=== PATIENT | male | born 1955 | race Hispanic/Latino ===

== ENCOUNTER 2020-12-09 15:40 | Inpatient (IN) | payer MEDICARE ==
[~2020-12-09] VITALS: Ht 167.6 cm; Wt 69.4 kg
[2020-12-09 16:45] LABS: BASOPHILS # (AUTO) 0.1 (0.0-0.1); BASOPHILS % 0.4 % (0.0-1.0); EOSINOPHILS # (AUTO) 0.1 (0.0-0.4); EOSINOPHILS % 1.1 % (0.0-6.0); HEMOGLOBIN 12.2 g/dL (14.0-18.0); LYMPHOCYTES # (AUTO) 2.7 (1.0-3.2); LYMPHOCYTES % 23.6 % (18.0-39.1); MEAN CORPUSCULAR HEMOGLOBIN 26.6 pg (28-32); MEAN CORPUSCULAR HGB CONC 31.3 g/dL (31-35); MONOCYTES # (AUTO) 0.8 (0.2-0.8); MONOCYTES % 7.1 % (4.4-11.3); NEUTROPHILS # (AUTO) 7.7 (2.1-6.9); NEUTROPHILS % 67.4 % (38.7-80.0); PLATELET COUNT 417 x10e3/uL (140-360); RED BLOOD COUNT 4.59 x10e6/uL (4.3-5.7)
[2020-12-09 17:16] LABS: ALANINE AMINOTRANSFERASE 11 IU/L (0-55); ALBUMIN 3.6 g/dL (3.5-5.0); ALBUMIN/GLOBULIN RATIO 0.8 (0.8-2.0); ALKALINE PHOSPHATASE 60 IU/L (40-150); ANION GAP 17.8 mmol/L (8-16); BLOOD UREA NITROGEN 17 mg/dL (7-26); BUN/CREATININE RATIO 17 (6-25); CALCIUM 9.2 mg/dL (8.4-10.2); CARBON DIOXIDE 22 mmol/L (22-29); CHLORIDE 103 mmol/L (98-107); CREATININE, SERUM 1.02 mg/dL (0.72-1.25); EST GLOMERULAR FILTRATION RATE > 60 ML/MIN (60-); GLUCOSE 208 mg/dL (74-118); POTASSIUM 4.8 mmol/L (3.5-5.1); SODIUM 138 mmol/L (136-145)
[2020-12-09] MEDS ORDERED: DEXTROSE 50% SYRINGE 50 ML IV PRN (19:45)
[2020-12-09] MEDS ORDERED: SODIUM CHLORIDE FLUSH 10 ML SYR INJ PRN (19:45)
[2020-12-09] MEDS ORDERED: ACETAMINOPHEN 325 MG TAB PO PRN (19:45)
[2020-12-09] MEDS: PIPER-TAZ 3.375 GM 50 ML IV SCH (20:26)
[2020-12-09] MEDS: INSULIN REGULAR, HUMAN 100 UNIT/1 ML 3ML VIAL SQ SCH (21:00)
[2020-12-09 21:41] VITALS: BP 163/82
[2020-12-09] MEDS ORDERED: SODIUM CHLORIDE 0.9% 250ML 250 ML ONE (22:13)
[2020-12-09] MEDS: VANCOMYCIN 1GM/NS 250 ML 250 ML IV SCH (22:24)
[2020-12-09 22:38] VITALS: BP 163/82
[2020-12-09] MEDS ORDERED: ULTRAM50 MG PO (22:52)
[2020-12-09] MEDS ORDERED: GLUCOPHAGE500 MG PO (22:52)
[2020-12-09] MEDS ORDERED: ASPIRIN81 MG PO (23:00)
[2020-12-09] MEDS ORDERED: NEURONTIN300 MG PO (23:01)
[2020-12-09] MEDS ORDERED: TIMOLOL MALEATE10 MG PO (23:02)
[2020-12-09] MEDS ORDERED: TIMOPTIC 0.5%1 EACH OU (23:05)
[2020-12-09] MEDS ORDERED: PRAVASTATIN SOD40 MG PO (23:08)
[2020-12-09] MEDS ORDERED: LISINOPRIL10 MG PO (23:08)
[2020-12-09] MEDS ORDERED: XALATAN2.5 ML OU (23:09)
[2020-12-09 23:55] VITALS: BP 163/82
[2020-12-10] VITALS (8 sets, daily range): BP systolic 132–162; BP diastolic 61–75
[2020-12-10] MEDS: PIPER-TAZ 3.375 GM 50 ML IV SCH ×3 (03:50→20:00)
[2020-12-10 05:29] LABS: BASOPHILS # (AUTO) 0.1 (0.0-0.1); BASOPHILS % 0.6 % (0.0-1.0); EOSINOPHILS # (AUTO) 0.2 (0.0-0.4); EOSINOPHILS % 2.6 % (0.0-6.0); HEMOGLOBIN 11.2 g/dL (14.0-18.0); LYMPHOCYTES # (AUTO) 2.5 (1.0-3.2); LYMPHOCYTES % 28.8 % (18.0-39.1); MEAN CORPUSCULAR HEMOGLOBIN 27.5 pg (28-32); MONOCYTES # (AUTO) 0.9 (0.2-0.8); MONOCYTES % 10.6 % (4.4-11.3); NEUTROPHILS % 57.1 % (38.7-80.0); PLATELET COUNT 317 x10e3/uL (140-360); RED BLOOD COUNT 4.07 x10e6/uL (4.3-5.7); RED CELL DISTRIBUTION WIDTH 13.9 % (11.7-14.4)
[2020-12-10 05:58] LABS: ALANINE AMINOTRANSFERASE 7 IU/L (0-55); ALBUMIN 3.2 g/dL (3.5-5.0); ALBUMIN/GLOBULIN RATIO 0.8 (0.8-2.0); ALKALINE PHOSPHATASE 62 IU/L (40-150); ANION GAP 12.6 mmol/L (8-16); BLOOD UREA NITROGEN 14 mg/dL (7-26); BUN/CREATININE RATIO 15 (6-25); CALCIUM 8.5 mg/dL (8.4-10.2); CARBON DIOXIDE 24 mmol/L (22-29); CHLORIDE 105 mmol/L (98-107); CREATININE, SERUM 0.94 mg/dL (0.72-1.25); EST GLOMERULAR FILTRATION RATE > 60 ML/MIN (60-); GLUCOSE 278 mg/dL (74-118); POTASSIUM 4.6 mmol/L (3.5-5.1); SODIUM 137 mmol/L (136-145)
[2020-12-10] MEDS: INSULIN REGULAR, HUMAN 100 UNIT/1 ML 3ML VIAL SQ SCH ×4 (08:30→20:44)
[2020-12-10] MEDS ORDERED: LATANOPROST(OPTH) 2.5 ML BTL OU SCH (09:00)
[2020-12-10] MEDS: GABAPENTIN 300 MG CAP PO SCH ×2 (10:00→17:41)
[2020-12-10] MEDS: LISINOPRIL 10 MG TAB PO SCH (10:00)
[2020-12-10] MEDS: METFORMIN HCL 500 MG TAB PO SCH ×2 (10:00→17:41)
[2020-12-10] MEDS: TRAMADOL HCL 50 MG TAB PO SCH ×2 (10:00→17:41)
[2020-12-10] MEDS: VANCOMYCIN 1GM/NS 250 ML 250 ML IV SCH ×2 (10:00→20:49)
[2020-12-10] MEDS: ASPIRIN 81 MG CHEW TAB PO SCH (10:00)
[2020-12-10] MEDS: TIMOLOL MALEATE 0.5% OPTH DRP 5 ML BTL OU SCH ×2 (11:36→17:00)
[2020-12-10] MEDS ORDERED: GADOBENATE DIMEGLUMINE 1 ML IV ONE (18:29)
[2020-12-10] MEDS: PRAVASTATIN 20 MG TAB PO SCH (20:49)
[2020-12-10] MEDS: LATANOPROST(OPTH) 2.5 ML BTL OU SCH (20:51)
[2020-12-11] VITALS (9 sets, daily range): BP systolic 106–184; BP diastolic 61–76
[2020-12-11] MEDS: PIPER-TAZ 3.375 GM 50 ML IV SCH ×3 (04:00→20:57)
[2020-12-11] MEDS: INSULIN REGULAR, HUMAN 100 UNIT/1 ML 3ML VIAL SQ SCH ×4 (07:30→20:57)
[2020-12-11] MEDS: METFORMIN HCL 500 MG TAB PO SCH ×2 (09:00→16:56)
[2020-12-11] MEDS: TIMOLOL MALEATE 0.5% OPTH DRP 5 ML BTL OU SCH (09:38)
[2020-12-11] MEDS: LISINOPRIL 10 MG TAB PO SCH (09:38)
[2020-12-11] MEDS: VANCOMYCIN 1GM/NS 250 ML 250 ML IV SCH ×2 (09:38→21:30)
[2020-12-11] MEDS: TRAMADOL HCL 50 MG TAB PO SCH ×2 (09:38→16:56)
[2020-12-11] MEDS: ASPIRIN 81 MG CHEW TAB PO SCH (09:38)
[2020-12-11] MEDS: GABAPENTIN 300 MG CAP PO SCH ×2 (09:38→16:56)
[2020-12-11] MEDS: PRAVASTATIN 20 MG TAB PO SCH (20:57)
[2020-12-11] MEDS: LATANOPROST(OPTH) 2.5 ML BTL OU SCH (21:00)
[2020-12-12] VITALS (9 sets, daily range): BP systolic 123–152; BP diastolic 56–70
[2020-12-12] MEDS: PIPER-TAZ 3.375 GM 50 ML IV SCH ×3 (04:30→20:00)
[2020-12-12] MEDS: INSULIN REGULAR, HUMAN 100 UNIT/1 ML 3ML VIAL SQ SCH ×4 (08:35→21:00)
[2020-12-12] MEDS: METFORMIN HCL 500 MG TAB PO SCH ×2 (08:36→17:13)
[2020-12-12] MEDS: VANCOMYCIN 1GM/NS 250 ML 250 ML IV SCH ×2 (08:36→21:00)
[2020-12-12] MEDS: TIMOLOL MALEATE 0.5% OPTH DRP 5 ML BTL OU SCH (08:36)
[2020-12-12] MEDS: GABAPENTIN 300 MG CAP PO SCH ×2 (08:37→17:13)
[2020-12-12] MEDS: ASPIRIN 81 MG CHEW TAB PO SCH (08:37)
[2020-12-12] MEDS: TRAMADOL HCL 50 MG TAB PO SCH ×2 (08:38→17:13)
[2020-12-12] MEDS: LISINOPRIL 10 MG TAB PO SCH (08:38)
[2020-12-12] MEDS: PRAVASTATIN 20 MG TAB PO SCH (21:00)
[2020-12-12] MEDS: LATANOPROST(OPTH) 2.5 ML BTL OU SCH (21:00)
[2020-12-13] VITALS (8 sets, daily range): BP systolic 122–164; BP diastolic 60–72
[2020-12-13] MEDS: PIPER-TAZ 3.375 GM 50 ML IV SCH ×3 (04:00→19:57)
[2020-12-13] MEDS: TRAMADOL HCL 50 MG TAB PO SCH ×2 (07:14→16:27)
[2020-12-13] MEDS: INSULIN REGULAR, HUMAN 100 UNIT/1 ML 3ML VIAL SQ SCH ×4 (07:30→21:48)
[2020-12-13] MEDS: ASPIRIN 81 MG CHEW TAB PO SCH (09:00)
[2020-12-13] MEDS: LISINOPRIL 10 MG TAB PO SCH (09:00)
[2020-12-13] MEDS: METFORMIN HCL 500 MG TAB PO SCH (09:00)
[2020-12-13] MEDS: GABAPENTIN 300 MG CAP PO SCH ×2 (09:00→16:27)
[2020-12-13] MEDS ORDERED: SODIUM CHLORIDE 0.9% 1000ML 1,000 ML IV SCH (09:15)
[2020-12-13] MEDS ORDERED: CLOPIDOGREL BISULFATE 75 MG TAB PO NR (09:15)
[2020-12-13] MEDS: TIMOLOL MALEATE 0.5% OPTH DRP 5 ML BTL OU SCH (09:49)
[2020-12-13] MEDS: VANCOMYCIN 1GM/NS 250 ML 250 ML IV SCH ×2 (09:49→21:47)
[2020-12-13] MEDS ORDERED: LIDOCAINE HCL 2% LOCAL 20 ML VIAL ONE (11:44)
[2020-12-13] MEDS ORDERED: FENTANYL CITRATE/PF 100MCG/2 ML INJ ONE (11:44)
[2020-12-13] MEDS ORDERED: MIDAZOLAM HCL 2 MG/2 ML VIAL ONE ×3 (11:44→14:37)
[2020-12-13] MEDS ORDERED: HEPARIN SOD/SOD CHLORIDE 2,000 ML ONE (11:45)
[2020-12-13] MEDS ORDERED: SODIUM CHLORIDE 0.9% 1000ML 1,000 ML ONE (11:45)
[2020-12-13] MEDS ORDERED: IOPAMIDOL 300MG/ML 100 ML INFUS..BTL IV ONE (11:45)
[2020-12-13] MEDS ORDERED: ONDANSETRON HCL INJ 2MG/ML 2ML 2 MG/ML VIAL IV PRN (15:15)
[2020-12-13] MEDS: SODIUM CHLORIDE 0.9% 1000ML 1,000 ML IV SCH (15:21)
[2020-12-13] MEDS: MORPHINE SULFATE INJ 4 MG/ML INJ 1ML IV PRN ×2 (18:00→23:54)
[2020-12-13] MEDS: PRAVASTATIN 20 MG TAB PO SCH (21:47)
[2020-12-13] MEDS: LATANOPROST(OPTH) 2.5 ML BTL OU SCH (21:47)
[2020-12-14] VITALS (7 sets, daily range): BP systolic 107–140; BP diastolic 59–79
[2020-12-14] MEDS: PIPER-TAZ 3.375 GM 50 ML IV SCH ×3 (03:25→21:16)
[2020-12-14 05:56] LABS: BASOPHILS # (AUTO) 0.1 (0.0-0.1); BASOPHILS % 0.7 % (0.0-1.0); EOSINOPHILS # (AUTO) 0.2 (0.0-0.4); EOSINOPHILS % 2.3 % (0.0-6.0); HEMATOCRIT 29.8 % (38.2-49.6); HEMOGLOBIN 9.5 g/dL (14.0-18.0); LYMPHOCYTES # (AUTO) 1.7 (1.0-3.2); LYMPHOCYTES % 19.9 % (18.0-39.1); MEAN CORPUSCULAR HEMOGLOBIN 27.1 pg (28-32); MEAN CORPUSCULAR HGB CONC 31.9 g/dL (31-35); MEAN CORPUSCULAR VOLUME 85.1 fL (81-99); MONOCYTES # (AUTO) 0.8 (0.2-0.8); MONOCYTES % 9.4 % (4.4-11.3); NEUTROPHILS # (AUTO) 5.8 (2.1-6.9); NEUTROPHILS % 67.2 % (38.7-80.0); PLATELET COUNT 291 x10e3/uL (140-360); RED CELL DISTRIBUTION WIDTH 13.8 % (11.7-14.4)
[2020-12-14] MEDS: SODIUM CHLORIDE 0.9% 1000ML 1,000 ML IV SCH ×2 (06:30→20:00)
[2020-12-14 06:33] LABS: ALANINE AMINOTRANSFERASE 7 IU/L (0-55); ALBUMIN 2.8 g/dL (3.5-5.0); ALKALINE PHOSPHATASE 43 IU/L (40-150); ANION GAP 11.1 mmol/L (8-16); BLOOD UREA NITROGEN 13 mg/dL (7-26); BUN/CREATININE RATIO 14 (6-25); CALCIUM 7.9 mg/dL (8.4-10.2); CARBON DIOXIDE 25 mmol/L (22-29); CHLORIDE 104 mmol/L (98-107); EST GLOMERULAR FILTRATION RATE > 60 ML/MIN (60-); GLUCOSE 219 mg/dL (74-118); POTASSIUM 4.1 mmol/L (3.5-5.1); SODIUM 136 mmol/L (136-145)
[2020-12-14] MEDS: INSULIN REGULAR, HUMAN 100 UNIT/1 ML 3ML VIAL SQ SCH ×4 (08:30→21:21)
[2020-12-14] MEDS: VANCOMYCIN 1GM/NS 250 ML 250 ML IV SCH (09:00)
[2020-12-14] MEDS ORDERED: CLOPIDOGREL BISULFATE 75 MG TAB PO SCH (09:00)
[2020-12-14] MEDS: GABAPENTIN 300 MG CAP PO SCH ×2 (09:25→16:05)
[2020-12-14] MEDS: TRAMADOL HCL 50 MG TAB PO SCH ×2 (09:25→16:05)
[2020-12-14] MEDS: LISINOPRIL 10 MG TAB PO SCH (09:25)
[2020-12-14] MEDS: TIMOLOL MALEATE 0.5% OPTH DRP 5 ML BTL OU SCH (09:25)
[2020-12-14] MEDS: ASPIRIN 81 MG CHEW TAB PO SCH (11:52)
[2020-12-14] MEDS: CLOPIDOGREL BISULFATE 75 MG TAB PO SCH (11:52)
[2020-12-14] MEDS: LATANOPROST(OPTH) 2.5 ML BTL OU SCH (21:26)
[2020-12-14] MEDS: PRAVASTATIN 20 MG TAB PO SCH (21:26)
[2020-12-15] VITALS (8 sets, daily range): BP systolic 92–151; BP diastolic 58–75
[2020-12-15] MEDS: PIPER-TAZ 3.375 GM 50 ML IV SCH ×3 (03:40→20:00)
[2020-12-15] MEDS ORDERED: DEXAMETHASONE SOD PHOS INJ 4 MG/ML VIAL ONE (06:19)
[2020-12-15] MEDS ORDERED: BUPIVACAINE HCL 0.5% INJ 30 ML VIAL INJ ONE (06:19)
[2020-12-15] MEDS ORDERED: FENTANYL CITRATE/PF 100MCG/2 ML INJ ONE (07:40)
[2020-12-15] MEDS: INSULIN REGULAR, HUMAN 100 UNIT/1 ML 3ML VIAL SQ SCH ×4 (08:00→21:00)
[2020-12-15] MEDS: ASPIRIN 81 MG CHEW TAB PO SCH (09:00)
[2020-12-15] MEDS: GABAPENTIN 300 MG CAP PO SCH ×2 (09:00→16:19)
[2020-12-15] MEDS: CLOPIDOGREL BISULFATE 75 MG TAB PO SCH (09:01)
[2020-12-15] MEDS: LISINOPRIL 10 MG TAB PO SCH (09:01)
[2020-12-15] MEDS: TRAMADOL HCL 50 MG TAB PO SCH ×2 (09:01→16:20)
[2020-12-15] MEDS: VANCOMYCIN 1GM/NS 250 ML 250 ML IV SCH (09:09)
[2020-12-15] MEDS: TIMOLOL MALEATE 0.5% OPTH DRP 5 ML BTL OU SCH (09:10)
[2020-12-15] MEDS: MORPHINE SULFATE INJ 4 MG/ML INJ 1ML IV PRN ×2 (10:33→16:04)
[2020-12-15] MEDS: SODIUM CHLORIDE 0.9% 1000ML 1,000 ML IV SCH (12:09)
[2020-12-15] MEDS: LATANOPROST(OPTH) 2.5 ML BTL OU SCH (21:00)
[2020-12-15] MEDS: PRAVASTATIN 20 MG TAB PO SCH (21:00)
[2020-12-16] VITALS (7 sets, daily range): BP systolic 104–145; BP diastolic 60–72
[2020-12-16] MEDS: PIPER-TAZ 3.375 GM 50 ML IV SCH ×3 (03:44→21:06)
[2020-12-16 05:39] LABS: BASOPHILS % 0.4 % (0.0-1.0); EOSINOPHILS # (AUTO) 0.1 (0.0-0.4); EOSINOPHILS % 0.6 % (0.0-6.0); HEMATOCRIT 26.1 % (38.2-49.6); HEMOGLOBIN 8.6 g/dL (14.0-18.0); LYMPHOCYTES # (AUTO) 2.5 (1.0-3.2); LYMPHOCYTES % 22.5 % (18.0-39.1); MEAN CORPUSCULAR HEMOGLOBIN 27.9 pg (28-32); MEAN CORPUSCULAR VOLUME 84.7 fL (81-99); MONOCYTES % 9.1 % (4.4-11.3); NEUTROPHILS # (AUTO) 7.4 (2.1-6.9); NEUTROPHILS % 66.9 % (38.7-80.0); PLATELET COUNT 282 x10e3/uL (140-360); RED BLOOD COUNT 3.08 x10e6/uL (4.3-5.7)
[2020-12-16 06:17] LABS: ALANINE AMINOTRANSFERASE 8 IU/L (0-55); ALBUMIN 2.8 g/dL (3.5-5.0); ALBUMIN/GLOBULIN RATIO 0.8 (0.8-2.0); ALKALINE PHOSPHATASE 45 IU/L (40-150); ANION GAP 11.7 mmol/L (8-16); BLOOD UREA NITROGEN 8 mg/dL (7-26); BUN/CREATININE RATIO 10 (6-25); CALCIUM 8.2 mg/dL (8.4-10.2); CARBON DIOXIDE 26 mmol/L (22-29); CHLORIDE 105 mmol/L (98-107); EST GLOMERULAR FILTRATION RATE > 60 ML/MIN (60-); GLUCOSE 153 mg/dL (74-118); POTASSIUM 3.7 mmol/L (3.5-5.1); SODIUM 139 mmol/L (136-145)
[2020-12-16] MEDS: INSULIN REGULAR, HUMAN 100 UNIT/1 ML 3ML VIAL SQ SCH ×4 (07:30→21:06)
[2020-12-16] MEDS: VANCOMYCIN 1GM/NS 250 ML 250 ML IV SCH (08:38)
[2020-12-16] MEDS: ASPIRIN 81 MG CHEW TAB PO SCH (08:38)
[2020-12-16] MEDS: TIMOLOL MALEATE 0.5% OPTH DRP 5 ML BTL OU SCH (08:38)
[2020-12-16] MEDS: TRAMADOL HCL 50 MG TAB PO SCH ×2 (08:39→16:53)
[2020-12-16] MEDS: LISINOPRIL 10 MG TAB PO SCH (08:39)
[2020-12-16] MEDS: GABAPENTIN 300 MG CAP PO SCH ×2 (08:39→16:51)
[2020-12-16] MEDS: CLOPIDOGREL BISULFATE 75 MG TAB PO SCH (08:39)
[2020-12-16] MEDS: MORPHINE SULFATE INJ 4 MG/ML INJ 1ML IV PRN ×3 (12:57→21:16)
[2020-12-16] MEDS ORDERED: ONDANSETRON HCL 4 MG ORAL DISINTEGRATING TAB PO PRN (14:15)
[2020-12-16] MEDS: PRAVASTATIN 20 MG TAB PO SCH (21:06)
[2020-12-16] MEDS: LATANOPROST(OPTH) 2.5 ML BTL OU SCH (21:06)
[2020-12-17] VITALS: BP 141/66
[2020-12-17] MEDS: MORPHINE SULFATE INJ 4 MG/ML INJ 1ML IV PRN ×5 (02:40→18:09)
[2020-12-17] MEDS: PIPER-TAZ 3.375 GM 50 ML IV SCH ×2 (03:29→12:07)
[2020-12-17 04:00] VITALS: BP 139/68
[2020-12-17 06:40] LABS: BASOPHILS # (AUTO) 0.1 (0.0-0.1); BASOPHILS % 0.5 % (0.0-1.0); EOSINOPHILS # (AUTO) 0.4 (0.0-0.4); EOSINOPHILS % 2.6 % (0.0-6.0); HEMATOCRIT 27.5 % (38.2-49.6); HEMOGLOBIN 8.7 g/dL (14.0-18.0); LYMPHOCYTES # (AUTO) 2.7 (1.0-3.2); LYMPHOCYTES % 20.1 % (18.0-39.1); MEAN CORPUSCULAR HEMOGLOBIN 26.8 pg (28-32); MEAN CORPUSCULAR HGB CONC 31.6 g/dL (31-35); MEAN CORPUSCULAR VOLUME 84.6 fL (81-99); MONOCYTES # (AUTO) 1.1 (0.2-0.8); MONOCYTES % 8.4 % (4.4-11.3); NEUTROPHILS # (AUTO) 9.1 (2.1-6.9); PLATELET COUNT 318 x10e3/uL (140-360); RED BLOOD COUNT 3.25 x10e6/uL (4.3-5.7); RED CELL DISTRIBUTION WIDTH 14.5 % (11.7-14.4)
[2020-12-17] MEDS: INSULIN REGULAR, HUMAN 100 UNIT/1 ML 3ML VIAL SQ SCH ×3 (07:30→16:30)
[2020-12-17 07:55] VITALS: BP 132/81
[2020-12-17 08:40] VITALS: BP 132/81
[2020-12-17] MEDS: TIMOLOL MALEATE 0.5% OPTH DRP 5 ML BTL OU SCH (09:51)
[2020-12-17] MEDS: ASPIRIN 81 MG CHEW TAB PO SCH (09:51)
[2020-12-17] MEDS: GABAPENTIN 300 MG CAP PO SCH ×2 (09:51→17:43)
[2020-12-17] MEDS: CLOPIDOGREL BISULFATE 75 MG TAB PO SCH (09:52)
[2020-12-17] MEDS: LISINOPRIL 10 MG TAB PO SCH (09:53)
[2020-12-17 12:08] VITALS: BP 146/74
[2020-12-17 16:27] VITALS: BP 144/66
[2020-12-17] MEDS ORDERED: ATORVASTATIN 40 MG TAB PO SCH (21:00)
== END 2020-12-17 18:15 | disposition home or self-care (01) | DRG 240 ==
LOC: ER 15:50 → ERHOLD 19:40 → MED/SURG2 21:13
PROVIDERS: ADMIT Internal Medicine; ATTEND Internal Medicine
PROC: 047K3Z1 Dilation of Right Femoral Artery using Drug-Coated Balloon, Percutaneous Approach (ICD-10-PCS; principal; 2020-12-13)
PROC: 047M3Z1 Dilation of Right Popliteal Artery using Drug-Coated Balloon, Percutaneous Approach (ICD-10-PCS; 2020-12-13)
PROC: 047P3Z1 Dilation of Right Anterior Tibial Artery using Drug-Coated Balloon, Percutaneous Approach (ICD-10-PCS; 2020-12-13)
PROC: B41D1ZZ Fluoroscopy of Aorta and Bilateral Lower Extremity Arteries using Low Osmolar Contrast (ICD-10-PCS; 2020-12-13)
PROC: 0Y6M0Z9 Detachment at Right Foot, Partial 1st Ray, Open Approach (ICD-10-PCS; 2020-12-15)
PROC: 0Y6M0ZB Detachment at Right Foot, Partial 2nd Ray, Open Approach (ICD-10-PCS; 2020-12-15)
PROC: 0Y6M0ZC Detachment at Right Foot, Partial 3rd Ray, Open Approach (ICD-10-PCS; 2020-12-15)
PROC: 0Y6M0ZD Detachment at Right Foot, Partial 4th Ray, Open Approach (ICD-10-PCS; 2020-12-15)
PROC: 0Y6M0ZF Detachment at Right Foot, Partial 5th Ray, Open Approach (ICD-10-PCS; 2020-12-15)
DX: E11.52 Type 2 diabetes mellitus with diabetic peripheral angiopathy with gangrene (principal); I70.261 Atherosclerosis of native arteries of extremities with gangrene, right leg; L03.115 Cellulitis of right lower limb; M86.171 Other acute osteomyelitis, right ankle and foot; L97.514 Non-pressure chronic ulcer of other part of right foot with necrosis of bone; E11.69 Type 2 diabetes mellitus with other specified complication; E11.65 Type 2 diabetes mellitus with hyperglycemia; I10 Essential (primary) hypertension; E78.00 Pure hypercholesterolemia, unspecified; Z20.822 Contact with and (suspected) exposure to COVID-19; B95.62 Methicillin resistant Staphylococcus aureus infection as the cause of diseases classified elsewhere; Z89.412 Acquired absence of left great toe; Z89.411 Acquired absence of right great toe; E11.42 Type 2 diabetes mellitus with diabetic polyneuropathy; E11.621 Type 2 diabetes mellitus with foot ulcer; Z89.421 Acquired absence of other right toe(s); Z79.84 Long term (current) use of oral hypoglycemic drugs
CPT/HCPCS: 36247; 36415; 37224; 37228; 75716; 76937; 80053; 80202; 82948; 85025; 87071; 87075; 87186; 87205; 88304; 88305; 88311; 93306; 93925; 99152; 99153; 99284; C1760; C1769; C1887; C2623; J1100; J1817; J2001; J2250; J2270; J2543; J3010; J3370; J7030; J7050; Q9967; U0002

== ENCOUNTER 2020-12-28 18:18 | Inpatient (IN) | payer MEDICARE ==
[~2020-12-28] VITALS: Ht 167.6 cm; Wt 69.4 kg
[~2020-12-28 18:18] MED LIST: ASPIRIN81 MG PO; GLUCOPHAGE500 MG PO; LISINOPRIL10 MG PO; NEURONTIN300 MG PO; PRAVASTATIN SOD40 MG PO; TIMOLOL MALEATE10 MG PO; TIMOPTIC 0.5%1 EACH OU; ULTRAM50 MG PO; XALATAN2.5 ML OU
[2020-12-28 19:48] LABS: BASOPHILS # (AUTO) 0.1 (0.0-0.1); BASOPHILS % 0.4 % (0.0-1.0); EOSINOPHILS # (AUTO) 0.1 (0.0-0.4); EOSINOPHILS % 0.4 % (0.0-6.0); HEMATOCRIT 35.1 % (38.2-49.6); HEMOGLOBIN 11.2 g/dL (14.0-18.0); LYMPHOCYTES # (AUTO) 2.4 (1.0-3.2); LYMPHOCYTES % 15.1 % (18.0-39.1); MEAN CORPUSCULAR HGB CONC 31.9 g/dL (31-35); MEAN CORPUSCULAR VOLUME 84.6 fL (81-99); MONOCYTES # (AUTO) 1.1 (0.2-0.8); MONOCYTES % 6.8 % (4.4-11.3); NEUTROPHILS # (AUTO) 12.2 (2.1-6.9); NEUTROPHILS % 76.7 % (38.7-80.0); PLATELET COUNT 546 x10e3/uL (140-360); RED BLOOD COUNT 4.15 x10e6/uL (4.3-5.7); RED CELL DISTRIBUTION WIDTH 14.6 % (11.7-14.4)
[2020-12-28 19:51] LABS: INR 0.95; PROTHROMBIN TIME 13.2 seconds (11.9-14.5)
[2020-12-28 19:52] LABS: PARTIAL THROMBOPLASTIN TIME 34.6 seconds (23.8-35.5)
[2020-12-28 19:59] LABS: ALANINE AMINOTRANSFERASE 16 IU/L (0-55); ALBUMIN 3.7 g/dL (3.5-5.0); ALBUMIN/GLOBULIN RATIO 0.8 (0.8-2.0); ALKALINE PHOSPHATASE 78 IU/L (40-150); ANION GAP 16.7 mmol/L (8-16); BLOOD UREA NITROGEN 14 mg/dL (7-26); BUN/CREATININE RATIO 14 (6-25); CALCIUM 9.6 mg/dL (8.4-10.2); CARBON DIOXIDE 24 mmol/L (22-29); CHLORIDE 94 mmol/L (98-107); CREATINE KINASE 20 IU/L (30-200); CREATININE, SERUM 1.02 mg/dL (0.72-1.25); EST GLOMERULAR FILTRATION RATE > 60 ML/MIN (60-); GLUCOSE 284 mg/dL (74-118); POTASSIUM 4.7 mmol/L (3.5-5.1); SODIUM 130 mmol/L (136-145)
[2020-12-28] MEDS ORDERED: IOPAMIDOL 370 MG/ML 200 ML INFUS..BTL INJ ONE (21:26)
[2020-12-28] MEDS ORDERED: SODIUM CHLORIDE 0.9% 0 ML ONE (21:26)
[2020-12-28] MEDS ORDERED: ONDANSETRON HCL INJ 2MG/ML 2ML 2 MG/ML VIAL IV STA (21:55)
[2020-12-28] MEDS ORDERED: MORPHINE SULFATE INJ 2 MG/ML SYR IV STA (21:55)
[2020-12-28] MEDS ORDERED: SODIUM CHLORIDE 0.9% 100 ML ONE (22:25)
[2020-12-28] MEDS ORDERED: PIPER-TAZ 3.375 GM 50 ML IV ONE (22:45)
[2020-12-28] MEDS ORDERED: SODIUM CHLORIDE 0.9% 1000ML 1,000 ML IV ONE (22:45)
[2020-12-28] MEDS ORDERED: PIPERACILLIN/TAZOBAC 3.375 GM VIAL ONE (23:04)
[2020-12-28] MEDS ORDERED: SODIUM CHLORIDE 0.9% 50ML 50 ML ONE (23:04)
[2020-12-28] MEDS ORDERED: HYDROMORPHONE 1MG/1ML INJ IV STA (23:05)
[2020-12-28] MEDS ORDERED: HYDROMORPHONE 1MG/1ML INJ ONE (23:31)
[2020-12-29 00:28] LABS: CLARITY,URINE CLEAR (CLEAR); COLOR,URINE YELLOW (YELLOW); KETONES,URINE 1+ (NEGATIVE); LEUKOCYTE ESTERASE ,URINE NEGATIVE (NEGATIVE); NITRITE,URINE NEGATIVE (NEGATIVE); PROTEIN,URINE DIPSTICK NEGATIVE (NEGATIVE); URINE UROBILINOGEN 0.2 mg/dL (0.2 - 1)
[2020-12-29] MEDS ORDERED: HYDROMORPHONE 1MG/1ML INJ IV PRN (00:45)
[2020-12-29] MEDS ORDERED: ONDANSETRON HCL INJ 2MG/ML 2ML 2 MG/ML VIAL IV PRN (00:45)
[2020-12-29] MEDS ORDERED: DEXTROSE 50% SYRINGE 50 ML IV PRN (00:45)
[2020-12-29 00:48] LABS: BACTERIA,URINE RARE /HPF; EPITHELIAL CELLS,URINE RARE /LPF; RBC,URINE 0-5 /HPF (0-5); WBC,URINE (MAN) 0-5 /HPF (0-5)
[2020-12-29] MEDS: SODIUM CHLORIDE 0.9% 1000ML 1,000 ML IV SCH ×3 (01:20→16:45)
[2020-12-29] MEDS: VANCOMYCIN 1GM/NS 250 ML 250 ML IV SCH ×2 (01:25→13:10)
[2020-12-29] MEDS ORDERED: ACETAMINOPHEN 325 MG TAB ONE (04:40)
[2020-12-29] MEDS: PIPER-TAZ 3.375 GM 50 ML IV SCH ×3 (08:10→21:49)
[2020-12-29 08:44] LABS: ANION GAP 16.5 mmol/L (8-16); BLOOD UREA NITROGEN 11 mg/dL (7-26); BUN/CREATININE RATIO 14 (6-25); CALCIUM 8.9 mg/dL (8.4-10.2); CARBON DIOXIDE 23 mmol/L (22-29); CHLORIDE 100 mmol/L (98-107); EST GLOMERULAR FILTRATION RATE > 60 ML/MIN (60-); GLUCOSE 218 mg/dL (74-118); POTASSIUM 4.5 mmol/L (3.5-5.1); SODIUM 135 mmol/L (136-145)
[2020-12-29] MEDS: INSULIN REGULAR, HUMAN 100 UNIT/1 ML 3ML VIAL SQ SCH ×4 (10:15→21:54)
[2020-12-29] MEDS: METOPROLOL TARTRATE 25 MG TAB PO SCH ×3 (10:34→21:50)
[2020-12-29] MEDS: ASPIRIN 81 MG ENTERIC COATED PO SCH (10:34)
[2020-12-29] MEDS: CLOPIDOGREL BISULFATE 75 MG TAB PO SCH (10:35)
[2020-12-29 20:00] VITALS: BP 164/81
[2020-12-29 21:00] VITALS: BP 164/81
[2020-12-29] MEDS ORDERED: SODIUM CHLORIDE 0.9% 50ML 50 ML ONE (21:30)
[2020-12-29] MEDS ORDERED: PIPERACILLIN/TAZOBAC 3.375 GM VIAL ONE (21:30)
[2020-12-29] MEDS: ATORVASTATIN 20 MG TAB PO SCH (21:49)
[2020-12-29] MEDS: TRAMADOL HCL 50 MG TAB PO PRN (22:31)
[2020-12-30] VITALS (7 sets, daily range): BP systolic 119–148; BP diastolic 58–78
[2020-12-30] MEDS: VANCOMYCIN 1GM/NS 250 ML 250 ML IV SCH ×2 (01:39→14:06)
[2020-12-30] MEDS ORDERED: INSULIN GLARGINE 100 UNITS/ML VIAL SQ SCH ×2 (02:30→21:00)
[2020-12-30] MEDS: TRAMADOL HCL 50 MG TAB PO PRN ×5 (02:30→21:05)
[2020-12-30] MEDS ORDERED: ONDANSETRON HCL INJ 2MG/ML 2ML 2 MG/ML VIAL IV PRN (03:00)
[2020-12-30] MEDS ORDERED: TEMAZEPAM 7.5 MG CAP PO PRN (03:00)
[2020-12-30] MEDS ORDERED: METOPROLOL TARTRATE INJ 1 MG/ML VIAL IV PRN (03:00)
[2020-12-30] MEDS ORDERED: ACETAMINOPHEN 325 MG TAB PO PRN (03:00)
[2020-12-30] MEDS ORDERED: POLYETHYLENE GLYCOL 3350 17 GM PACK PO PRN (03:00)
[2020-12-30 05:37] LABS: BASOPHILS # (AUTO) 0.1 (0.0-0.1); BASOPHILS % 0.6 % (0.0-1.0); EOSINOPHILS # (AUTO) 0.3 (0.0-0.4); EOSINOPHILS % 2.7 % (0.0-6.0); HEMATOCRIT 28.4 % (38.2-49.6); HEMOGLOBIN 9.1 g/dL (14.0-18.0); LYMPHOCYTES # (AUTO) 2.1 (1.0-3.2); LYMPHOCYTES % 17.9 % (18.0-39.1); MEAN CORPUSCULAR HEMOGLOBIN 26.8 pg (28-32); MEAN CORPUSCULAR VOLUME 83.5 fL (81-99); MONOCYTES # (AUTO) 1.3 (0.2-0.8); MONOCYTES % 10.8 % (4.4-11.3); NEUTROPHILS # (AUTO) 7.8 (2.1-6.9); NEUTROPHILS % 67.5 % (38.7-80.0); PLATELET COUNT 431 x10e3/uL (140-360); RED CELL DISTRIBUTION WIDTH 14.6 % (11.7-14.4)
[2020-12-30] MEDS ORDERED: PIPERACILLIN/TAZOBAC 3.375 GM VIAL ONE (05:39)
[2020-12-30] MEDS ORDERED: SODIUM CHLORIDE 0.9% 50ML 50 ML ONE (05:39)
[2020-12-30 05:50] LABS: ALANINE AMINOTRANSFERASE 11 IU/L (0-55); ALBUMIN 2.9 g/dL (3.5-5.0); ALBUMIN/GLOBULIN RATIO 0.7 (0.8-2.0); ALKALINE PHOSPHATASE 61 IU/L (40-150); ANION GAP 13.1 mmol/L (8-16); BLOOD UREA NITROGEN 10 mg/dL (7-26); BUN/CREATININE RATIO 14 (6-25); CALCIUM 8.5 mg/dL (8.4-10.2); CARBON DIOXIDE 24 mmol/L (22-29); CHLORIDE 100 mmol/L (98-107); CREATININE, SERUM 0.74 mg/dL (0.72-1.25); EST GLOMERULAR FILTRATION RATE > 60 ML/MIN (60-); GLUCOSE 137 mg/dL (74-118); POTASSIUM 4.1 mmol/L (3.5-5.1); SODIUM 133 mmol/L (136-145)
[2020-12-30] MEDS: PIPER-TAZ 3.375 GM 50 ML IV SCH (06:00)
[2020-12-30] MEDS: METOPROLOL TARTRATE 25 MG TAB PO SCH ×3 (06:15→21:13)
[2020-12-30] MEDS: MAGNESIUM OXIDE 400 MG TAB PO SCH ×2 (09:00→17:00)
[2020-12-30] MEDS: INSULIN REGULAR, HUMAN 100 UNIT/1 ML 3ML VIAL SQ SCH ×4 (09:00→21:16)
[2020-12-30] MEDS: FAMOTIDINE 20 MG TAB PO SCH ×2 (09:30→17:05)
[2020-12-30] MEDS: METFORMIN HCL 500 MG TAB PO SCH ×2 (09:31→17:05)
[2020-12-30] MEDS: ASPIRIN 81 MG ENTERIC COATED PO SCH (09:31)
[2020-12-30] MEDS: DOCUSATE SODIUM 100 MG CAP PO SCH ×2 (09:31→17:05)
[2020-12-30] MEDS: MULTIVITAMINS/MINERALS TAB PO SCH (09:31)
[2020-12-30] MEDS: OYST-CAL-D 500MG TABLET PO SCH ×2 (09:31→17:05)
[2020-12-30] MEDS: CLOPIDOGREL BISULFATE 75 MG TAB PO SCH (09:32)
[2020-12-30] MEDS: ZINC SULFATE 220 MG CAP PO SCH ×2 (09:32→17:05)
[2020-12-30] MEDS: ASCORBIC ACID 500 MG TAB PO SCH ×2 (09:32→17:05)
[2020-12-30 12:11] LABS: CREATINE KINASE MB 0.5 ng/mL (0-5.0)
[2020-12-30] MEDS: PIPERACILLIN/TAZOBAC 3.375 GM in SODIUM CHLORIDE 0.9% 50ML 50 ML IV SCH ×2 (13:00→21:38)
[2020-12-30] MEDS: LIDOCAINE 4% PATCH TP SCH (13:11)
[2020-12-30] MEDS: DICLOFENAC SOD 50 MG TAB PO SCH (17:14)
[2020-12-30] MEDS: ATORVASTATIN 20 MG TAB PO SCH (21:05)
[2020-12-31] VITALS: BP 139/70
[2020-12-31] MEDS: VANCOMYCIN 1GM/NS 250 ML 250 ML IV SCH (00:50)
[2020-12-31 04:00] VITALS: BP 138/65
[2020-12-31] MEDS: PIPERACILLIN/TAZOBAC 3.375 GM in SODIUM CHLORIDE 0.9% 50ML 50 ML IV SCH (05:44)
[2020-12-31] MEDS: METOPROLOL TARTRATE 25 MG TAB PO SCH ×4 (05:44→17:28)
[2020-12-31] MEDS: TRAMADOL HCL 50 MG TAB PO PRN ×3 (05:45→15:44)
[2020-12-31 07:25] LABS: BASOPHILS # (AUTO) 0.1 (0.0-0.1); BASOPHILS % 0.7 % (0.0-1.0); EOSINOPHILS # (AUTO) 0.5 (0.0-0.4); EOSINOPHILS % 4.7 % (0.0-6.0); HEMATOCRIT 28.7 % (38.2-49.6); HEMOGLOBIN 8.9 g/dL (14.0-18.0); LYMPHOCYTES # (AUTO) 1.4 (1.0-3.2); LYMPHOCYTES % 13.9 % (18.0-39.1); MEAN CORPUSCULAR VOLUME 83.9 fL (81-99); MONOCYTES # (AUTO) 1.1 (0.2-0.8); MONOCYTES % 11.3 % (4.4-11.3); NEUTROPHILS # (AUTO) 6.9 (2.1-6.9); NEUTROPHILS % 69.1 % (38.7-80.0); PLATELET COUNT 403 x10e3/uL (140-360); RED BLOOD COUNT 3.42 x10e6/uL (4.3-5.7); RED CELL DISTRIBUTION WIDTH 14.6 % (11.7-14.4)
[2020-12-31] MEDS: INSULIN REGULAR, HUMAN 100 UNIT/1 ML 3ML VIAL SQ SCH ×3 (07:30→17:00)
[2020-12-31 08:05] LABS: MAGNESIUM 1.6 MG/DL (1.3-2.1); PHOSPHORUS 3.8 MG/DL (2.3-4.7)
[2020-12-31] MEDS: FAMOTIDINE 20 MG TAB PO SCH ×2 (08:30→17:28)
[2020-12-31 08:49] VITALS: BP 143/68
[2020-12-31] MEDS: METFORMIN HCL 500 MG TAB PO SCH ×2 (09:00→17:28)
[2020-12-31] MEDS: MULTIVITAMINS/MINERALS TAB PO SCH (09:59)
[2020-12-31] MEDS: DOCUSATE SODIUM 100 MG CAP PO SCH ×2 (09:59→17:28)
[2020-12-31] MEDS: ASPIRIN 81 MG ENTERIC COATED PO SCH (09:59)
[2020-12-31] MEDS: ASCORBIC ACID 500 MG TAB PO SCH ×2 (10:00→17:28)
[2020-12-31] MEDS: DICLOFENAC SOD 50 MG TAB PO SCH (10:00)
[2020-12-31] MEDS: LIDOCAINE 4% PATCH TP SCH (10:00)
[2020-12-31] MEDS: CLOPIDOGREL BISULFATE 75 MG TAB PO SCH (10:00)
[2020-12-31] MEDS: MAGNESIUM OXIDE 400 MG TAB PO SCH ×2 (10:00→17:28)
[2020-12-31] MEDS: OYST-CAL-D 500MG TABLET PO SCH ×2 (10:00→17:28)
[2020-12-31] MEDS: ZINC SULFATE 220 MG CAP PO SCH ×2 (10:00→17:28)
[2020-12-31 11:46] VITALS: BP 143/67
[2020-12-31 16:14] VITALS: BP 142/67
[2020-12-31 16:30] VITALS: BP 142/67
[2020-12-31] MEDS ORDERED: ONDANSETRON HCL 4 MG ORAL DISINTEGRATING TAB PO ONE (18:15)
== END 2020-12-31 18:35 | disposition home or self-care (01) | DRG 564 ==
LOC: ER 18:48 → ERHOLD 12-29 00:44 → MED/SURG3 12-29 18:23
PROVIDERS: ADMIT Internal Medicine; ATTEND Internal Medicine
DX: T87.43 Infection of amputation stump, right lower extremity (principal); A41.9 Sepsis, unspecified organism; R65.20 Severe sepsis without septic shock; E87.2 Acidosis; E87.1 Hypo-osmolality and hyponatremia; E11.41 Type 2 diabetes mellitus with diabetic mononeuropathy; E11.65 Type 2 diabetes mellitus with hyperglycemia; D47.3 Essential (hemorrhagic) thrombocythemia; I10 Essential (primary) hypertension; E11.51 Type 2 diabetes mellitus with diabetic peripheral angiopathy without gangrene; Z79.899 Other long term (current) drug therapy; M25.422 Effusion, left elbow; Z20.822 Contact with and (suspected) exposure to COVID-19; K59.00 Constipation, unspecified; Z87.891 Personal history of nicotine dependence; E78.5 Hyperlipidemia, unspecified; G44.89 Other headache syndrome; Z89.431 Acquired absence of right foot; E11.69 Type 2 diabetes mellitus with other specified complication
CPT/HCPCS: 36415; 70450; 70551; 71045; 72141; 73206; 80048; 80053; 80202; 81001; 82550; 82553; 82948; 83605; 83735; 83874; 84100; 84443; 84484; 85025; 85610; 85730; 86235; 87040; 87086; 93005; 93931; 93971; 96367; 96372; 99251; 99284; J1170; J1815; J1817; J2270; J2405; J2543; J3370; J7030; J7050; Q0162; Q9967; U0002

== ENCOUNTER → 2021-04-05 | Outpatient (CLI) | payer MEDICARE | LOC: MRI 12:41 | PROVIDERS: ATTEND Podiatrist Foot & Ankle Surgery | DX: M86.071 Acute hematogenous osteomyelitis, right ankle and foot (principal) ==

== ENCOUNTER → 2021-04-22 | Day surgery (SDC) | payer MEDICARE ==
[2021-04-19 09:33] LABS: BASOPHILS # (AUTO) 0.1 (0.0-0.1); BASOPHILS % 0.4 % (0.0-1.0); EOSINOPHILS # (AUTO) 0.2 (0.0-0.4); EOSINOPHILS % 1.4 % (0.0-6.0); HEMATOCRIT 37.4 % (38.2-49.6); HEMOGLOBIN 12.4 g/dL (14.0-18.0); LYMPHOCYTES # (AUTO) 3.1 (1.0-3.2); LYMPHOCYTES % 26.5 % (18.0-39.1); MEAN CORPUSCULAR HEMOGLOBIN 29.5 pg (28-32); MEAN CORPUSCULAR HGB CONC 33.2 g/dL (31-35); MEAN CORPUSCULAR VOLUME 88.8 fL (81-99); MONOCYTES # (AUTO) 0.9 (0.2-0.8); MONOCYTES % 7.6 % (4.4-11.3); NEUTROPHILS # (AUTO) 7.3 (2.1-6.9); NEUTROPHILS % 63.2 % (38.7-80.0); PLATELET COUNT 258 x10e3/uL (140-360); RED BLOOD COUNT 4.21 x10e6/uL (4.3-5.7); RED CELL DISTRIBUTION WIDTH 15.8 % (11.7-14.4)
[2021-04-19 10:00] LABS: ANION GAP 16.1 mmol/L (8-16); CREATININE, SERUM 1.33 mg/dL (0.72-1.25); POTASSIUM 5.1 mmol/L (3.5-5.1)
[~2021-04-22] MED LIST changes: +BACTRIM DS TAB1 EACH PO; +BUPIVACAINE HCL 0.5% INJ 30 ML VIAL INJ ONE; +CEFAZOLIN SOD 1 GM/NS 50ML 50 ML IV ONE; +DEXAMETHASONE SOD PHOS INJ 4 MG/ML VIAL ONE; +FENTANYL CITRATE/PF 100MCG/2 ML INJ ONE; +LIDOCAINE HCL 2% LOCAL INJ 5 ML SDV VIAL INJ ONE; +MIDAZOLAM HCL 2 MG/2 ML VIAL ONE; +ONDANSETRON HCL INJ 2MG/ML 2ML 2 MG/ML VIAL ONE; +POVIDONE IODINE 0.05% 0.05 % ML PO ONE; +PROPOFOL IV EMULSION 10 MG/ML 20 ML VIAL ONE; +SEVOFLURANE INHAL SOLN 250 ML PEN BTL ONE; +VANCOMYCIN HCL 1 GM VIAL ONE; +long acting insulin SQ
[2021-04-22 07:39] VITALS: BP 175/80
== END | disposition home or self-care (01) ==
LOC: OR 05:30
PROVIDERS: ATTEND Podiatrist Foot & Ankle Surgery
DX: M86.9 Osteomyelitis, unspecified (principal); L97.514 Non-pressure chronic ulcer of other part of right foot with necrosis of bone; E11.22 Type 2 diabetes mellitus with diabetic chronic kidney disease; I12.9 Hypertensive chronic kidney disease with stage 1 through stage 4 chronic kidney disease, or unspecified chronic kidney disease; N18.9 Chronic kidney disease, unspecified; Z01.810 Encounter for preprocedural cardiovascular examination; Z01.812 Encounter for preprocedural laboratory examination; Z79.82 Long term (current) use of aspirin; Z79.4 Long term (current) use of insulin
CPT/HCPCS: 11044; 36415 ×2; 80048; 82948; 85025; 87071; 87075; 87186; 87205; 93005; C1713; J0690; J2001; J2405; J2704; J3370; J1100; J2250; J3010

== ENCOUNTER 2021-08-31 06:28 | Inpatient (IN) | payer MEDICARE ==
[~2021-08-31] VITALS: Ht 167.6 cm; Wt 69.4 kg
[2021-08-31] VITALS (10 sets, daily range): BP systolic 149–175; BP diastolic 65–74
[~2021-08-31 06:28] MED LIST changes: -BUPIVACAINE HCL 0.5% INJ 30 ML VIAL INJ ONE; -CEFAZOLIN SOD 1 GM/NS 50ML 50 ML IV ONE; -DEXAMETHASONE SOD PHOS INJ 4 MG/ML VIAL ONE; -FENTANYL CITRATE/PF 100MCG/2 ML INJ ONE; -LIDOCAINE HCL 2% LOCAL INJ 5 ML SDV VIAL INJ ONE; -MIDAZOLAM HCL 2 MG/2 ML VIAL ONE; -ONDANSETRON HCL INJ 2MG/ML 2ML 2 MG/ML VIAL ONE; -POVIDONE IODINE 0.05% 0.05 % ML PO ONE; -PROPOFOL IV EMULSION 10 MG/ML 20 ML VIAL ONE; -SEVOFLURANE INHAL SOLN 250 ML PEN BTL ONE; -VANCOMYCIN HCL 1 GM VIAL ONE
[2021-08-31 07:15] LABS: BASOPHILS # (AUTO) 0.1 (0.0-0.1); BASOPHILS % 0.5 % (0.0-1.0); EOSINOPHILS # (AUTO) 0.1 (0.0-0.4); EOSINOPHILS % 0.9 % (0.0-6.0); HEMATOCRIT 37.7 % (38.2-49.6); HEMOGLOBIN 12.3 g/dL (14.0-18.0); LYMPHOCYTES # (AUTO) 2.8 (1.0-3.2); LYMPHOCYTES % 27.2 % (18.0-39.1); MEAN CORPUSCULAR HEMOGLOBIN 30.1 pg (28-32); MEAN CORPUSCULAR HGB CONC 32.6 g/dL (31-35); MEAN CORPUSCULAR VOLUME 92.4 fL (81-99); MONOCYTES # (AUTO) 0.9 (0.2-0.8); MONOCYTES % 8.6 % (4.4-11.3); NEUTROPHILS # (AUTO) 6.3 (2.1-6.9); NEUTROPHILS % 62.2 % (38.7-80.0); PLATELET COUNT 233 x10e3/uL (140-360); RED BLOOD COUNT 4.08 x10e6/uL (4.3-5.7); RED CELL DISTRIBUTION WIDTH 12.8 % (11.7-14.4)
[2021-08-31] MEDS ORDERED: PIPERACILLIN/TAZOBACTAM 3.375 GM in SODIUM CHLORIDE 0.9% 50ML 50 ML IV ONE (07:30)
[2021-08-31 07:37] LABS: ALBUMIN 4.1 g/dL (3.5-5.0); ALBUMIN/GLOBULIN RATIO 1.8 (0.8-2.0); ANION GAP 14.6 mmol/L (8-16); CALCIUM 8.6 mg/dL (8.4-10.2); CREATININE, SERUM 1.07 mg/dL (0.72-1.25); MAGNESIUM 1.7 MG/DL (1.3-2.1); POTASSIUM 4.6 mmol/L (3.5-5.1)
[2021-08-31] MEDS ORDERED: SODIUM CHLORIDE 0.9% 1000ML 1,000 ML IV SCH (07:45)
[2021-08-31] MEDS ORDERED: ONDANSETRON HCL INJ 2MG/ML 2ML 2 MG/ML VIAL IV PRN (07:45)
[2021-08-31] MEDS ORDERED: LINEZOLID 600 MG/D5W 300ML 300 ML IV ONE (08:00)
[2021-08-31] MEDS ORDERED: DEXTROSE 50% SYRINGE 50 ML IV PRN (08:15)
[2021-08-31] MEDS: INSULIN LISPRO 100 UNIT/1 ML 3ML VIAL SQ SCH ×3 (11:30→21:26)
[2021-08-31] MEDS ORDERED: HYDRALAZINE HCL 20 MG/ML VIAL IV PRN (14:15)
[2021-08-31] MEDS ORDERED: ACETAMINOPHEN 325 MG TAB PO PRN (14:15)
[2021-08-31] MEDS ORDERED: SODIUM CHLORIDE 0.9% 250ML 250 ML ONE (17:09)
[2021-08-31] MEDS: TIMOLOL MALEATE 0.5% OPTH DRP 5 ML BTL OU SCH (17:14)
[2021-08-31] MEDS: GABAPENTIN 300 MG CAP PO SCH (17:15)
[2021-08-31] MEDS: PIPERACILLIN/TAZOBACTAM 3.375 GM in SODIUM CHLORIDE 0.9% 50ML 50 ML IV SCH ×2 (17:16→23:33)
[2021-08-31] MEDS: TRAMADOL HCL 50 MG TAB PO PRN (20:42)
[2021-08-31] MEDS: INSULIN GLARGINE 100 UNITS/ML VIAL SQ SCH (21:24)
[2021-09-01] VITALS (10 sets, daily range): BP systolic 134–172; BP diastolic 67–77
[2021-09-01 05:02] LABS: BASOPHILS # (AUTO) 0.1 (0.0-0.1); BASOPHILS % 0.8 % (0.0-1.0); EOSINOPHILS # (AUTO) 0.3 (0.0-0.4); EOSINOPHILS % 4.1 % (0.0-6.0); HEMATOCRIT 34.8 % (38.2-49.6); HEMOGLOBIN 11.3 g/dL (14.0-18.0); LYMPHOCYTES # (AUTO) 1.9 (1.0-3.2); MEAN CORPUSCULAR HEMOGLOBIN 29.4 pg (28-32); MEAN CORPUSCULAR HGB CONC 32.5 g/dL (31-35); MEAN CORPUSCULAR VOLUME 90.4 fL (81-99); MONOCYTES # (AUTO) 0.7 (0.2-0.8); MONOCYTES % 11.2 % (4.4-11.3); NEUTROPHILS # (AUTO) 3.3 (2.1-6.9); NEUTROPHILS % 52.6 % (38.7-80.0); PLATELET COUNT 226 x10e3/uL (140-360); RED BLOOD COUNT 3.85 x10e6/uL (4.3-5.7); RED CELL DISTRIBUTION WIDTH 12.6 % (11.7-14.4)
[2021-09-01 05:33] LABS: ALBUMIN 3.6 g/dL (3.5-5.0); ALBUMIN/GLOBULIN RATIO 1.6 (0.8-2.0); ANION GAP 11.2 mmol/L (8-16); CALCIUM 8.5 mg/dL (8.4-10.2); CREATININE, SERUM 1.01 mg/dL (0.72-1.25); POTASSIUM 4.2 mmol/L (3.5-5.1)
[2021-09-01] MEDS: PIPERACILLIN/TAZOBACTAM 3.375 GM in SODIUM CHLORIDE 0.9% 50ML 50 ML IV SCH ×4 (05:46→20:49)
[2021-09-01] MEDS: INSULIN LISPRO 100 UNIT/1 ML 3ML VIAL SQ SCH ×4 (08:30→21:00)
[2021-09-01] MEDS: LATANOPROST(OPTH) 2.5 ML BTL OU SCH (09:32)
[2021-09-01] MEDS: TIMOLOL MALEATE 0.5% OPTH DRP 5 ML BTL OU SCH ×2 (09:32→16:30)
[2021-09-01] MEDS: LISINOPRIL 20 MG TAB PO SCH (09:33)
[2021-09-01] MEDS: GABAPENTIN 300 MG CAP PO SCH ×2 (09:33→16:30)
[2021-09-01] MEDS: MULTIVITAMINS/MINERALS TAB PO SCH (09:33)
[2021-09-01] MEDS: ASPIRIN 81 MG CHEW TAB PO SCH (09:33)
[2021-09-01] MEDS ORDERED: PRAVASTATIN SOD40 MG (14:15)
[2021-09-01] MEDS: INSULIN GLARGINE 100 UNITS/ML VIAL SQ SCH (21:00)
[2021-09-01] MEDS: TRAMADOL HCL 50 MG TAB PO PRN (21:05)
[2021-09-02] VITALS (8 sets, daily range): BP systolic 144–183; BP diastolic 61–82
[2021-09-02] MEDS: PIPERACILLIN/TAZOBACTAM 3.375 GM in SODIUM CHLORIDE 0.9% 50ML 50 ML IV SCH ×4 (05:37→23:56)
[2021-09-02] MEDS: INSULIN LISPRO 100 UNIT/1 ML 3ML VIAL SQ SCH ×4 (07:30→21:08)
[2021-09-02] MEDS: LISINOPRIL 20 MG TAB PO SCH (09:00)
[2021-09-02] MEDS: LATANOPROST(OPTH) 2.5 ML BTL OU SCH (09:00)
[2021-09-02] MEDS: MULTIVITAMINS/MINERALS TAB PO SCH (09:00)
[2021-09-02] MEDS: ASPIRIN 81 MG CHEW TAB PO SCH (09:00)
[2021-09-02] MEDS: GABAPENTIN 300 MG CAP PO SCH ×2 (09:00→17:00)
[2021-09-02] MEDS: TIMOLOL MALEATE 0.5% OPTH DRP 5 ML BTL OU SCH ×2 (09:00→17:00)
[2021-09-02] MEDS ORDERED: SODIUM CHLORIDE 0.9% 1000ML 1,000 ML IV SCH (12:45)
[2021-09-02 14:56] LABS: CHOL/HDL RATIO 4.7 (3.9-4.7)
[2021-09-02] MEDS: TRAMADOL HCL 50 MG TAB PO PRN (17:50)
[2021-09-02] MEDS: INSULIN GLARGINE 100 UNITS/ML VIAL SQ SCH (21:07)
[2021-09-02] MEDS: PRAVASTATIN 20 MG TAB PO SCH (21:08)
[2021-09-03] VITALS (8 sets, daily range): BP systolic 129–169; BP diastolic 63–75
[2021-09-03] MEDS: PIPERACILLIN/TAZOBACTAM 3.375 GM in SODIUM CHLORIDE 0.9% 50ML 50 ML IV SCH ×4 (05:43→23:14)
[2021-09-03] MEDS: INSULIN LISPRO 100 UNIT/1 ML 3ML VIAL SQ SCH ×4 (07:30→21:25)
[2021-09-03] MEDS: LISINOPRIL 20 MG TAB PO SCH (09:00)
[2021-09-03] MEDS: TIMOLOL MALEATE 0.5% OPTH DRP 5 ML BTL OU SCH ×2 (09:00→16:24)
[2021-09-03] MEDS: ASPIRIN 81 MG CHEW TAB PO SCH (09:00)
[2021-09-03] MEDS: GABAPENTIN 300 MG CAP PO SCH ×2 (09:00→16:23)
[2021-09-03] MEDS: LATANOPROST(OPTH) 2.5 ML BTL OU SCH (09:00)
[2021-09-03] MEDS: CLOPIDOGREL BISULFATE 75 MG TAB PO SCH (09:00)
[2021-09-03] MEDS: MULTIVITAMINS/MINERALS TAB PO SCH (10:53)
[2021-09-03] MEDS: TRAMADOL HCL 50 MG TAB PO PRN (17:52)
[2021-09-03] MEDS: PRAVASTATIN 20 MG TAB PO SCH (21:24)
[2021-09-03] MEDS: INSULIN GLARGINE 100 UNITS/ML VIAL SQ SCH (21:25)
[2021-09-04] VITALS (7 sets, daily range): BP systolic 109–157; BP diastolic 60–74
[2021-09-04] MEDS: PIPERACILLIN/TAZOBACTAM 3.375 GM in SODIUM CHLORIDE 0.9% 50ML 50 ML IV SCH ×3 (05:12→18:00)
[2021-09-04] MEDS: INSULIN LISPRO 100 UNIT/1 ML 3ML VIAL SQ SCH ×4 (07:30→21:00)
[2021-09-04] MEDS: MULTIVITAMINS/MINERALS TAB PO SCH (09:00)
[2021-09-04] MEDS: ASPIRIN 81 MG CHEW TAB PO SCH (09:00)
[2021-09-04] MEDS: LISINOPRIL 20 MG TAB PO SCH (09:00)
[2021-09-04] MEDS: GABAPENTIN 300 MG CAP PO SCH ×2 (09:00→17:00)
[2021-09-04] MEDS: LATANOPROST(OPTH) 2.5 ML BTL OU SCH (09:00)
[2021-09-04] MEDS: CLOPIDOGREL BISULFATE 75 MG TAB PO SCH (09:00)
[2021-09-04] MEDS: FENOFIBRATE 145 MG TAB PO SCH (09:00)
[2021-09-04] MEDS: TIMOLOL MALEATE 0.5% OPTH DRP 5 ML BTL OU SCH ×2 (09:00→17:00)
[2021-09-04] MEDS: TRAMADOL HCL 50 MG TAB PO PRN (14:01)
[2021-09-04] MEDS: INSULIN GLARGINE 100 UNITS/ML VIAL SQ SCH (21:00)
[2021-09-04] MEDS: PRAVASTATIN 20 MG TAB PO SCH (21:10)
[2021-09-04] MEDS ORDERED: SODIUM CHLORIDE 0.9% 1000ML 1,000 ML IV SCH (23:30)
[2021-09-05] VITALS (26 sets, daily range): BP systolic 77–156; BP diastolic 41–74
[2021-09-05] MEDS: PIPERACILLIN/TAZOBACTAM 3.375 GM in SODIUM CHLORIDE 0.9% 50ML 50 ML IV SCH ×4 (00:33→17:34)
[2021-09-05 05:30] LABS: BASOPHILS # (AUTO) 0.1 (0.0-0.1); BASOPHILS % 0.7 % (0.0-1.0); EOSINOPHILS # (AUTO) 0.4 (0.0-0.4); EOSINOPHILS % 5.1 % (0.0-6.0); HEMATOCRIT 37.1 % (38.2-49.6); HEMOGLOBIN 12.2 g/dL (14.0-18.0); LYMPHOCYTES # (AUTO) 2.4 (1.0-3.2); LYMPHOCYTES % 31.6 % (18.0-39.1); MEAN CORPUSCULAR HEMOGLOBIN 29.6 pg (28-32); MEAN CORPUSCULAR HGB CONC 32.9 g/dL (31-35); MONOCYTES % 12.5 % (4.4-11.3); NEUTROPHILS # (AUTO) 3.8 (2.1-6.9); NEUTROPHILS % 49.8 % (38.7-80.0); PLATELET COUNT 231 x10e3/uL (140-360); RED BLOOD COUNT 4.12 x10e6/uL (4.3-5.7); RED CELL DISTRIBUTION WIDTH 12.6 % (11.7-14.4)
[2021-09-05 05:38] LABS: INR 1.01; PROTHROMBIN TIME 13.7 seconds (11.9-14.5)
[2021-09-05 06:01] LABS: ALBUMIN 3.3 g/dL (3.5-5.0); ALBUMIN/GLOBULIN RATIO 1.4 (0.8-2.0); ANION GAP 13.2 mmol/L (8-16); CALCIUM 8.6 mg/dL (8.4-10.2); CREATININE, SERUM 0.96 mg/dL (0.72-1.25); POTASSIUM 4.2 mmol/L (3.5-5.1)
[2021-09-05] MEDS: INSULIN LISPRO 100 UNIT/1 ML 3ML VIAL SQ SCH ×4 (07:30→21:00)
[2021-09-05] MEDS ORDERED: HEPARIN SOD (PORCINE) 1000 UNIT/ML 30ML ONE (07:57)
[2021-09-05] MEDS ORDERED: HEPARIN SOD/SOD CHLORIDE 2,000 ML ONE (07:58)
[2021-09-05] MEDS ORDERED: MIDAZOLAM HCL 2 MG/2 ML VIAL ONE ×2 (07:58→09:34)
[2021-09-05] MEDS ORDERED: FENTANYL CITRATE/PF 100MCG/2 ML INJ ONE (07:58)
[2021-09-05] MEDS ORDERED: IOPAMIDOL 300MG/ML 100 ML INFUS..BTL IV ONE (07:58)
[2021-09-05] MEDS ORDERED: LIDOCAINE HCL 2% LOCAL 20 ML VIAL ONE (07:58)
[2021-09-05] MEDS ORDERED: SODIUM CHLORIDE 0.9% 1000ML 1,000 ML ONE (07:59)
[2021-09-05] MEDS ORDERED: NITROGLYCERIN/D5W 200 MCG/ML 250 ML ONE (07:59)
[2021-09-05] MEDS: GABAPENTIN 300 MG CAP PO SCH ×2 (09:00→16:44)
[2021-09-05] MEDS: LATANOPROST(OPTH) 2.5 ML BTL OU SCH (09:00)
[2021-09-05] MEDS: CLOPIDOGREL BISULFATE 75 MG TAB PO SCH (09:00)
[2021-09-05] MEDS: TIMOLOL MALEATE 0.5% OPTH DRP 5 ML BTL OU SCH (09:00)
[2021-09-05] MEDS: ASPIRIN 81 MG CHEW TAB PO SCH (09:00)
[2021-09-05] MEDS ORDERED: CLOPIDOGREL BISULFATE 75 MG TAB ONE (09:37)
[2021-09-05] MEDS ORDERED: ASPIRIN 325 MG TAB ONE (09:38)
[2021-09-05] MEDS ORDERED: ONDANSETRON HCL INJ 2MG/ML 2ML 2 MG/ML VIAL IV PRN (09:45)
[2021-09-05] MEDS ORDERED: Morphine 4mg Syringe 4 MG/ML INJ IV PRN (09:45)
[2021-09-05] MEDS: FENOFIBRATE 145 MG TAB PO SCH (13:07)
[2021-09-05] MEDS: LISINOPRIL 20 MG TAB PO SCH (13:07)
[2021-09-05] MEDS: MULTIVITAMINS/MINERALS TAB PO SCH (13:07)
[2021-09-05] MEDS: SODIUM CHLORIDE 0.9% 1000ML 1,000 ML IV SCH ×2 (13:08→20:30)
[2021-09-05] MEDS: HYDROCODONE/APAP 5MG-325MG TAB PO PRN ×2 (13:22→21:13)
[2021-09-05] MEDS: PRAVASTATIN 20 MG TAB PO SCH (21:00)
[2021-09-05] MEDS: INSULIN GLARGINE 100 UNITS/ML VIAL SQ SCH (21:00)
[2021-09-06] VITALS (7 sets, daily range): BP systolic 102–176; BP diastolic 58–73
[2021-09-06] MEDS: PIPERACILLIN/TAZOBACTAM 3.375 GM in SODIUM CHLORIDE 0.9% 50ML 50 ML IV SCH ×3 (00:18→21:00)
[2021-09-06] MEDS: HYDROCODONE/APAP 5MG-325MG TAB PO PRN ×3 (03:30→16:46)
[2021-09-06 06:14] LABS: ALBUMIN 2.9 g/dL (3.5-5.0); ALBUMIN/GLOBULIN RATIO 1.5 (0.8-2.0); ANION GAP 13.3 mmol/L (8-16); CALCIUM 7.8 mg/dL (8.4-10.2); CREATININE, SERUM 1.35 mg/dL (0.72-1.25); POTASSIUM 4.3 mmol/L (3.5-5.1)
[2021-09-06] MEDS: SODIUM CHLORIDE 0.9% 1000ML 1,000 ML IV SCH ×2 (06:59→16:30)
[2021-09-06 07:03] LABS: BASOPHILS % 0.5 % (0.0-1.0); EOSINOPHILS # (AUTO) 0.2 (0.0-0.4); HEMATOCRIT 28.4 % (38.2-49.6); LYMPHOCYTES % 24.3 % (18.0-39.1); MEAN CORPUSCULAR HEMOGLOBIN 29.7 pg (28-32); MEAN CORPUSCULAR HGB CONC 31.7 g/dL (31-35); MONOCYTES % 11.8 % (4.4-11.3); NEUTROPHILS # (AUTO) 5.1 (2.1-6.9); PLATELET COUNT 216 x10e3/uL (140-360); RED BLOOD COUNT 3.03 x10e6/uL (4.3-5.7); RED CELL DISTRIBUTION WIDTH 12.9 % (11.7-14.4)
[2021-09-06 07:09] LABS: MEAN CORPUSCULAR VOLUME 93.7 fL (81-99)
[2021-09-06] MEDS: INSULIN LISPRO 100 UNIT/1 ML 3ML VIAL SQ SCH ×4 (07:30→21:30)
[2021-09-06] MEDS: TIMOLOL MALEATE 0.5% OPTH DRP 5 ML BTL OU SCH ×2 (09:00→17:00)
[2021-09-06] MEDS: GABAPENTIN 300 MG CAP PO SCH ×2 (09:16→16:46)
[2021-09-06] MEDS: CLOPIDOGREL BISULFATE 75 MG TAB PO SCH (09:16)
[2021-09-06] MEDS: MULTIVITAMINS/MINERALS TAB PO SCH (09:17)
[2021-09-06] MEDS: LISINOPRIL 20 MG TAB PO SCH (09:17)
[2021-09-06] MEDS: LATANOPROST(OPTH) 2.5 ML BTL OU SCH (09:17)
[2021-09-06] MEDS: ASPIRIN 81 MG CHEW TAB PO SCH (09:17)
[2021-09-06] MEDS: FENOFIBRATE 145 MG TAB PO SCH (09:17)
[2021-09-06] MEDS: INSULIN GLARGINE 100 UNITS/ML VIAL SQ SCH (21:30)
[2021-09-06] MEDS ORDERED: TRAMADOL HCL 50 MG TAB PO PRN (22:15)
[2021-09-06] MEDS: PRAVASTATIN 20 MG TAB PO SCH (22:43)
[2021-09-07] VITALS (7 sets, daily range): BP systolic 140–170; BP diastolic 63–71
[2021-09-07] MEDS: HYDROCODONE/APAP 5MG-325MG TAB PO PRN ×2 (03:50→10:31)
[2021-09-07] MEDS: SODIUM CHLORIDE 0.9% 1000ML 1,000 ML IV SCH (04:26)
[2021-09-07 05:34] LABS: ANION GAP 11.7 mmol/L (8-16); CALCIUM 7.8 mg/dL (8.4-10.2); CREATININE, SERUM 0.89 mg/dL (0.72-1.25); POTASSIUM 3.7 mmol/L (3.5-5.1)
[2021-09-07] MEDS: PIPERACILLIN/TAZOBACTAM 3.375 GM in SODIUM CHLORIDE 0.9% 50ML 50 ML IV SCH (07:43)
[2021-09-07] MEDS: TIMOLOL MALEATE 0.5% OPTH DRP 5 ML BTL OU SCH ×2 (07:44→16:21)
[2021-09-07] MEDS: GABAPENTIN 300 MG CAP PO SCH ×2 (07:44→16:19)
[2021-09-07] MEDS: MULTIVITAMINS/MINERALS TAB PO SCH (07:44)
[2021-09-07] MEDS: LATANOPROST(OPTH) 2.5 ML BTL OU SCH (07:44)
[2021-09-07] MEDS: CLOPIDOGREL BISULFATE 75 MG TAB PO SCH (07:44)
[2021-09-07] MEDS: ASPIRIN 81 MG CHEW TAB PO SCH (07:44)
[2021-09-07] MEDS: LISINOPRIL 20 MG TAB PO SCH (07:45)
[2021-09-07] MEDS: FENOFIBRATE 145 MG TAB PO SCH (07:51)
[2021-09-07] MEDS: INSULIN LISPRO 100 UNIT/1 ML 3ML VIAL SQ SCH ×3 (07:55→16:20)
[2021-09-07] MEDS ORDERED: CLINDAMYCIN HC150 MG PO (15:01)
[2021-09-07] MEDS ORDERED: FENOFIBRATE145 MG PO (15:12)
[2021-09-07] MEDS ORDERED: PRAVASTATIN SOD20 MG PO (15:25)
[2021-09-07] MEDS ORDERED: FENOFIBRATE 145 MG TAB PO SCH (21:00)
== END 2021-09-07 18:11 | disposition home or self-care (01) | DRG 271 ==
LOC: ER 06:36 → ERHOLD 07:42 → MED/SURG2 09:52
PROVIDERS: ADMIT Internal Medicine; ATTEND Internal Medicine
PROC: 047L3Z1 Dilation of Left Femoral Artery using Drug-Coated Balloon, Percutaneous Approach (ICD-10-PCS; principal; 2021-09-05)
PROC: 04CL3ZZ Extirpation of Matter from Left Femoral Artery, Percutaneous Approach (ICD-10-PCS; 2021-09-05)
PROC: B4101ZZ Fluoroscopy of Abdominal Aorta using Low Osmolar Contrast (ICD-10-PCS; 2021-09-05)
PROC: B41G1ZZ Fluoroscopy of Left Lower Extremity Arteries using Low Osmolar Contrast (ICD-10-PCS; 2021-09-05)
DX: E11.51 Type 2 diabetes mellitus with diabetic peripheral angiopathy without gangrene (principal); T82.856A Stenosis of peripheral vascular stent, initial encounter; L03.116 Cellulitis of left lower limb; M86.672 Other chronic osteomyelitis, left ankle and foot; I70.245 Atherosclerosis of native arteries of left leg with ulceration of other part of foot; E11.69 Type 2 diabetes mellitus with other specified complication; E11.42 Type 2 diabetes mellitus with diabetic polyneuropathy; E78.00 Pure hypercholesterolemia, unspecified; Z89.412 Acquired absence of left great toe; Z89.431 Acquired absence of right foot; Z87.891 Personal history of nicotine dependence; Z79.82 Long term (current) use of aspirin; Z79.4 Long term (current) use of insulin; Z79.84 Long term (current) use of oral hypoglycemic drugs; E78.5 Hyperlipidemia, unspecified; E11.621 Type 2 diabetes mellitus with foot ulcer; L97.529 Non-pressure chronic ulcer of other part of left foot with unspecified severity; R53.81 Other malaise
CPT/HCPCS: 36415; 37225; 71045; 75710; 76937; 80048; 80053; 80061; 82948; 83735; 85025; 85347; 85610; 87040; 93005; 93925; 96372; 99152; 99153; 99284; C1725; C1766; C1769; C1874; C1887; C1894; J0360; J1644; J1815; J2001; J2020; J2250; J2270; J2405; J2543; J3010; J7030; J7050; Q9967; U0002

== ENCOUNTER → 2021-11-14 | Outpatient (CLI) | payer MEDICARE ==
[~2021-11-14] MED LIST changes: +CLINDAMYCIN HC150 MG PO; +FENOFIBRATE145 MG PO; +PRAVASTATIN SOD20 MG PO; +PRAVASTATIN SOD40 MG
== END ==
LOC: MRI 11-10 12:49
PROVIDERS: ATTEND Podiatrist Foot & Ankle Surgery
DX: M86.072 Acute hematogenous osteomyelitis, left ankle and foot (principal)

== ENCOUNTER → 2021-11-21 | Day surgery (SDC) | payer MEDICARE ==
[2021-11-18 11:49] LABS: BASOPHILS # (AUTO) 0.1 (0.0-0.1); BASOPHILS % 0.5 % (0.0-1.0); EOSINOPHILS # (AUTO) 0.2 (0.0-0.4); EOSINOPHILS % 2.3 % (0.0-6.0); HEMOGLOBIN 13.4 g/dL (14.0-18.0); LYMPHOCYTES # (AUTO) 2.3 (1.0-3.2); LYMPHOCYTES % 24.1 % (18.0-39.1); MEAN CORPUSCULAR HEMOGLOBIN 28.3 pg (28-32); MEAN CORPUSCULAR HGB CONC 31.2 g/dL (31-35); MEAN CORPUSCULAR VOLUME 90.7 fL (81-99); MONOCYTES # (AUTO) 0.8 (0.2-0.8); NEUTROPHILS % 63.8 % (38.7-80.0); PLATELET COUNT 283 x10e3/uL (140-360); RED BLOOD COUNT 4.74 x10e6/uL (4.3-5.7)
[2021-11-18 12:03] LABS: ANION GAP 13.7 mmol/L (8-16); CALCIUM 10.2 mg/dL (8.4-10.2); POTASSIUM 4.7 mmol/L (3.5-5.1)
[~2021-11-21] MED LIST changes: +BUPIVACAINE HCL 0.5% INJ 30 ML VIAL INJ ONE; +DEXAMETHASONE SOD PHOS INJ 4 MG/ML SDV ONE; +DEXTROSE 5% 250ML 250 ML IV ONE; +FENTANYL CITRATE/PF 100MCG/2 ML INJ ONE; +KETOROLAC TROMETHAMINE 30 MG/ML VIAL ONE; +LIDOCAINE HCL 2% LOCAL INJ 5 ML SDV VIAL INJ ONE; +MIDAZOLAM HCL 2 MG/2 ML VIAL ONE; +ONDANSETRON HCL INJ 2MG/ML 2ML 2 MG/ML VIAL ONE; +PHENYLEPHRINE HCL 1% 10 MG/ML VIAL ONE; +POVIDONE IODINE 0.05% 0.05 % ML PO ONE; +PROPOFOL IV EMULSION 10 MG/ML 20 ML VIAL ONE; +SEVOFLURANE INHAL SOLN 250 ML PEN BTL ONE; +SODIUM CHLORIDE 0.9% 50ML 50 ML ONE
[2021-11-21 07:50] VITALS: BP 146/64
== END | disposition home or self-care (01) ==
LOC: OR 06:45
PROVIDERS: ATTEND Podiatrist Foot & Ankle Surgery
DX: M86.072 Acute hematogenous osteomyelitis, left ankle and foot (principal); M86.672 Other chronic osteomyelitis, left ankle and foot; I70.208 Unspecified atherosclerosis of native arteries of extremities, other extremity; M65.872 Other synovitis and tenosynovitis, left ankle and foot; Z89.412 Acquired absence of left great toe; E11.9 Type 2 diabetes mellitus without complications; G62.9 Polyneuropathy, unspecified; I10 Essential (primary) hypertension; E78.5 Hyperlipidemia, unspecified; F17.200 Nicotine dependence, unspecified, uncomplicated; Z01.812 Encounter for preprocedural laboratory examination; Z20.822 Contact with and (suspected) exposure to COVID-19; Z79.82 Long term (current) use of aspirin; Z79.02 Long term (current) use of antithrombotics/antiplatelets; Z79.4 Long term (current) use of insulin; Z79.899 Other long term (current) drug therapy
CPT/HCPCS: 28820; 36415 ×2; 80048; 82948; 85025; 87071; 87075; 87205; 88305; 88311; J0690; J1100; J1885; J2001; J2250; J2370; J2405; J2704; J3010; J7070; U0002; 87186; 88304

== ENCOUNTER 2022-02-12 13:38 | Inpatient (IN) | payer MEDICARE ==
[~2022-02-12] VITALS: Ht 167.6 cm; Wt 67.3 kg
[~2022-02-12 13:38] MED LIST changes: -BUPIVACAINE HCL 0.5% INJ 30 ML VIAL INJ ONE; -DEXAMETHASONE SOD PHOS INJ 4 MG/ML SDV ONE; -DEXTROSE 5% 250ML 250 ML IV ONE; -FENTANYL CITRATE/PF 100MCG/2 ML INJ ONE; -KETOROLAC TROMETHAMINE 30 MG/ML VIAL ONE; -LIDOCAINE HCL 2% LOCAL INJ 5 ML SDV VIAL INJ ONE; -MIDAZOLAM HCL 2 MG/2 ML VIAL ONE; -ONDANSETRON HCL INJ 2MG/ML 2ML 2 MG/ML VIAL ONE; -PHENYLEPHRINE HCL 1% 10 MG/ML VIAL ONE; -POVIDONE IODINE 0.05% 0.05 % ML PO ONE; -PROPOFOL IV EMULSION 10 MG/ML 20 ML VIAL ONE; -SEVOFLURANE INHAL SOLN 250 ML PEN BTL ONE; -SODIUM CHLORIDE 0.9% 50ML 50 ML ONE
[2022-02-12] MEDS ORDERED: SODIUM CHLORIDE 0.9% 1000ML 1,000 ML IV STA (14:51)
[2022-02-12 14:58] LABS: BASOPHILS # (AUTO) 0.1 (0.0-0.1); BASOPHILS % 0.6 % (0.0-1.0); EOSINOPHILS # (AUTO) 0.1 (0.0-0.4); EOSINOPHILS % 0.3 % (0.0-6.0); HEMATOCRIT 38.7 % (38.2-49.6); HEMOGLOBIN 12.6 g/dL (14.0-18.0); LYMPHOCYTES # (AUTO) 2.9 (1.0-3.2); LYMPHOCYTES % 20.4 % (18.0-39.1); MEAN CORPUSCULAR HEMOGLOBIN 29.2 pg (28-32); MEAN CORPUSCULAR HGB CONC 32.6 g/dL (31-35); MEAN CORPUSCULAR VOLUME 89.8 fL (81-99); MONOCYTES # (AUTO) 0.8 (0.2-0.8); MONOCYTES % 5.7 % (4.4-11.3); NEUTROPHILS # (AUTO) 10.4 (2.1-6.9); NEUTROPHILS % 72.4 % (38.7-80.0); PLATELET COUNT 383 x10e3/uL (140-360); RED BLOOD COUNT 4.31 x10e6/uL (4.3-5.7); RED CELL DISTRIBUTION WIDTH 14.7 % (11.7-14.4)
[2022-02-12 15:08] LABS: INR 0.83; PROTHROMBIN TIME 12.2 seconds (11.9-14.5)
[2022-02-12 15:09] LABS: PARTIAL THROMBOPLASTIN TIME 26.7 seconds (23.8-35.5)
[2022-02-12 15:19] LABS: ALBUMIN 3.8 g/dL (3.5-5.0); ALBUMIN/GLOBULIN RATIO 1.1 (0.8-2.0); ANION GAP 16.1 mmol/L (8-16); CALCIUM 9.3 mg/dL (8.4-10.2); CREATININE, SERUM 1.04 mg/dL (0.72-1.25); MAGNESIUM 1.6 MG/DL (1.3-2.1); POTASSIUM 4.1 mmol/L (3.5-5.1)
[2022-02-12 15:25] LABS: CREATINE KINASE MB 1.2 ng/mL (0-5.0)
[2022-02-12] MEDS ORDERED: PIPERACILLIN/TAZOBACTAM 3.375 GM VIAL ONE (16:00)
[2022-02-12] MEDS ORDERED: Vancomycin IV 1 GM VIAL ONE (16:00)
[2022-02-12] MEDS ORDERED: SODIUM CHLORIDE 0.9% 100 ML ONE (16:00)
[2022-02-12] MEDS ORDERED: SODIUM CHLORIDE 0.9% 250ML 250 ML ONE ×2 (16:00→20:50)
[2022-02-12] MEDS ORDERED: Vancomycin IV 1 GM in SODIUM CHLORIDE 0.9% 250ML 250 ML IV ONE (16:00)
[2022-02-12] MEDS ORDERED: SODIUM CHLORIDE 0.9% 500ML 500 ML IV ONE (16:30)
[2022-02-12] MEDS ORDERED: ONDANSETRON HCL INJ 2MG/ML 2ML 2 MG/ML VIAL IV PRN (17:15)
[2022-02-12] MEDS ORDERED: DEXTROSE 50% SYRINGE 50 ML IV PRN (17:15)
[2022-02-12] MEDS ORDERED: Morphine 2mg Syringe 2 MG/ML SYR IV PRN (17:15)
[2022-02-12 19:00] VITALS: BP 135/58
[2022-02-12] MEDS ORDERED: LANTUS 3ML100 UNITS/ SQ (20:12)
[2022-02-12] MEDS ORDERED: ATORVASTATIN CA40 MG PO (20:15)
[2022-02-12] MEDS ORDERED: PLAVIX75 MG PO (20:15)
[2022-02-12] MEDS ORDERED: AMLODIPINE BESYL5 MG PO (20:15)
[2022-02-12 21:00] VITALS: BP 153/77
[2022-02-12] MEDS: INSULIN GLARGINE 100 UNITS/ML VIAL SQ SCH (21:00)
[2022-02-12] MEDS: LATANOPROST(OPTH) 2.5 ML BTL OU SCH (21:00)
[2022-02-12] MEDS: ATORVASTATIN 40 MG TAB PO SCH (21:00)
[2022-02-12] MEDS: GABAPENTIN 300 MG CAP PO SCH (21:01)
[2022-02-12] MEDS: INSULIN LISPRO 100 UNIT/1 ML 3ML VIAL SQ SCH (21:01)
[2022-02-12 21:11] VITALS: BP 153/77
[2022-02-12 22:04] LABS: CREATINE KINASE MB 1.1 ng/mL (0-5.0)
[2022-02-13] VITALS (8 sets, daily range): BP systolic 125–182; BP diastolic 58–81
[2022-02-13] MEDS: Vancomycin IV 1 GM in SODIUM CHLORIDE 0.9% 250ML 250 ML IV SCH ×2 (04:19→16:25)
[2022-02-13 05:55] LABS: BASOPHILS # (AUTO) 0.1 (0.0-0.1); BASOPHILS % 0.8 % (0.0-1.0); EOSINOPHILS # (AUTO) 0.2 (0.0-0.4); EOSINOPHILS % 2.5 % (0.0-6.0); HEMATOCRIT 33.5 % (38.2-49.6); HEMOGLOBIN 10.9 g/dL (14.0-18.0); LYMPHOCYTES # (AUTO) 2.5 (1.0-3.2); LYMPHOCYTES % 28.3 % (18.0-39.1); MEAN CORPUSCULAR HEMOGLOBIN 29.6 pg (28-32); MEAN CORPUSCULAR HGB CONC 32.5 g/dL (31-35); MONOCYTES # (AUTO) 0.8 (0.2-0.8); MONOCYTES % 8.9 % (4.4-11.3); NEUTROPHILS # (AUTO) 5.2 (2.1-6.9); NEUTROPHILS % 58.7 % (38.7-80.0); PLATELET COUNT 318 x10e3/uL (140-360); RED BLOOD COUNT 3.68 x10e6/uL (4.3-5.7)
[2022-02-13 06:28] LABS: ALBUMIN 3.3 g/dL (3.5-5.0); ALBUMIN/GLOBULIN RATIO 1.3 (0.8-2.0); ANION GAP 12.8 mmol/L (8-16); CALCIUM 8.4 mg/dL (8.4-10.2); CHOL/HDL RATIO 3.7 (3.9-4.7); CREATININE, SERUM 0.86 mg/dL (0.72-1.25); POTASSIUM 3.8 mmol/L (3.5-5.1)
[2022-02-13 07:03] LABS: CREATINE KINASE MB 1.3 ng/mL (0-5.0)
[2022-02-13] MEDS ORDERED: SODIUM CHLORIDE 0.9% 250ML 250 ML ONE (07:26)
[2022-02-13] MEDS: INSULIN LISPRO 100 UNIT/1 ML 3ML VIAL SQ SCH ×4 (07:30→20:12)
[2022-02-13] MEDS: GABAPENTIN 300 MG CAP PO SCH ×2 (08:42→20:34)
[2022-02-13] MEDS ORDERED: MAGNESIUM SULF 1GRAM/DEXTROSE 100 ML IV ONE (11:30)
[2022-02-13] MEDS ORDERED: ONDANSETRON HCL 4 MG ORAL DISINTEGRATING TAB PO PRN (13:00)
[2022-02-13] MEDS ORDERED: ACETAMINOPHEN 325 MG TAB PO PRN (14:00)
[2022-02-13] MEDS ORDERED: ONDANSETRON HCL INJ 2MG/ML 2ML 2 MG/ML VIAL IV PRN (14:00)
[2022-02-13] MEDS ORDERED: POLYETHYLENE GLYCOL 3350 17 GM PACK PO PRN (14:00)
[2022-02-13] MEDS ORDERED: HYDRALAZINE HCL 20 MG/ML VIAL IV PRN (14:00)
[2022-02-13] MEDS: OYST-CAL-D 500MG TABLET PO SCH (15:30)
[2022-02-13] MEDS: TRAMADOL HCL 50 MG TAB PO PRN (15:30)
[2022-02-13] MEDS: METFORMIN HCL 500 MG TAB PO SCH (15:30)
[2022-02-13] MEDS: DOCUSATE SODIUM 100 MG CAP PO SCH (15:30)
[2022-02-13] MEDS: MAGNESIUM OXIDE 400 MG TAB PO SCH (15:30)
[2022-02-13] MEDS: ASCORBIC ACID 500 MG TAB PO SCH (15:30)
[2022-02-13] MEDS: FAMOTIDINE 20 MG TAB PO SCH (15:30)
[2022-02-13] MEDS: COLLAGENASE 5 GM TUBE TP SCH (16:25)
[2022-02-13] MEDS: INSULIN GLARGINE 100 UNITS/ML VIAL SQ SCH (20:12)
[2022-02-13] MEDS: ATORVASTATIN 40 MG TAB PO SCH (20:34)
[2022-02-13] MEDS: LATANOPROST(OPTH) 2.5 ML BTL OU SCH (20:34)
[2022-02-13] MEDS ORDERED: TEMAZEPAM 15 MG CAP PO PRN (21:00)
[2022-02-14] VITALS (8 sets, daily range): BP systolic 138–159; BP diastolic 64–69
[2022-02-14] MEDS: TRAMADOL HCL 50 MG TAB PO PRN ×2 (02:13→21:21)
[2022-02-14 06:02] LABS: BASOPHILS # (AUTO) 0.1 (0.0-0.1); BASOPHILS % 0.7 % (0.0-1.0); EOSINOPHILS # (AUTO) 0.3 (0.0-0.4); EOSINOPHILS % 3.7 % (0.0-6.0); HEMATOCRIT 34.2 % (38.2-49.6); LYMPHOCYTES # (AUTO) 2.1 (1.0-3.2); LYMPHOCYTES % 22.7 % (18.0-39.1); MEAN CORPUSCULAR HEMOGLOBIN 29.3 pg (28-32); MEAN CORPUSCULAR HGB CONC 32.2 g/dL (31-35); MONOCYTES # (AUTO) 0.8 (0.2-0.8); MONOCYTES % 8.6 % (4.4-11.3); NEUTROPHILS # (AUTO) 5.8 (2.1-6.9); NEUTROPHILS % 63.9 % (38.7-80.0); PLATELET COUNT 299 x10e3/uL (140-360); RED BLOOD COUNT 3.76 x10e6/uL (4.3-5.7); RED CELL DISTRIBUTION WIDTH 15.1 % (11.7-14.4)
[2022-02-14 06:22] LABS: CALCIUM 8.3 mg/dL (8.4-10.2); CREATININE, SERUM 1.05 mg/dL (0.72-1.25); MAGNESIUM 1.8 MG/DL (1.3-2.1); PHOSPHORUS 3.5 MG/DL (2.3-4.7)
[2022-02-14 06:49] LABS: THYROID STIMULATING HORMONE 1.595 uIU/mL (0.350-4.940)
[2022-02-14] MEDS: INSULIN LISPRO 100 UNIT/1 ML 3ML VIAL SQ SCH ×4 (07:30→20:41)
[2022-02-14] MEDS: FAMOTIDINE 20 MG TAB PO SCH ×2 (08:51→17:00)
[2022-02-14] MEDS: METFORMIN HCL 500 MG TAB PO SCH ×2 (08:51→17:00)
[2022-02-14] MEDS: TIMOLOL MALEATE 0.5% OPTH DRP 5 ML BTL OU SCH (08:51)
[2022-02-14] MEDS: AMLODIPINE BESYLATE 5 MG TAB PO SCH (08:52)
[2022-02-14] MEDS: MAGNESIUM OXIDE 400 MG TAB PO SCH ×2 (08:52→17:00)
[2022-02-14] MEDS: ZINC SULFATE 220 MG CAP PO SCH (08:52)
[2022-02-14] MEDS: OYST-CAL-D 500MG TABLET PO SCH ×2 (08:52→17:00)
[2022-02-14] MEDS: ASCORBIC ACID 500 MG TAB PO SCH ×2 (08:52→17:00)
[2022-02-14] MEDS: DOCUSATE SODIUM 100 MG CAP PO SCH ×2 (08:52→17:00)
[2022-02-14] MEDS: MULTIVITAMINS/MINERALS TAB PO SCH (08:52)
[2022-02-14] MEDS: GABAPENTIN 300 MG CAP PO SCH ×2 (08:52→20:40)
[2022-02-14] MEDS: COLLAGENASE 5 GM TUBE TP SCH (14:42)
[2022-02-14] MEDS: LATANOPROST(OPTH) 2.5 ML BTL OU SCH (20:39)
[2022-02-14] MEDS: ATORVASTATIN 40 MG TAB PO SCH (20:40)
[2022-02-14] MEDS: INSULIN GLARGINE 100 UNITS/ML VIAL SQ SCH (20:41)
[2022-02-15 00:27] VITALS: BP 146/61
[2022-02-15 05:49] VITALS: BP 136/71
[2022-02-15 08:00] VITALS: BP 136/71
[2022-02-15] MEDS: FAMOTIDINE 20 MG TAB PO SCH (08:06)
[2022-02-15] MEDS: METFORMIN HCL 500 MG TAB PO SCH (08:07)
[2022-02-15] MEDS: INSULIN LISPRO 100 UNIT/1 ML 3ML VIAL SQ SCH ×2 (08:07→11:30)
[2022-02-15 08:12] VITALS: BP 156/82
[2022-02-15] MEDS ORDERED: ASPIRIN 81 MG CHEW TAB PO SCH (09:00)
[2022-02-15] MEDS ORDERED: Vancomycin IV 1 GM in SODIUM CHLORIDE 0.9% 250ML 250 ML IV SCH (09:00)
[2022-02-15] MEDS ORDERED: CLOPIDOGREL BISULFATE 75 MG TAB PO SCH (09:00)
[2022-02-15] MEDS: TIMOLOL MALEATE 0.5% OPTH DRP 5 ML BTL OU SCH (10:09)
[2022-02-15] MEDS: ASCORBIC ACID 500 MG TAB PO SCH (10:09)
[2022-02-15] MEDS: ZINC SULFATE 220 MG CAP PO SCH (10:09)
[2022-02-15] MEDS: MAGNESIUM OXIDE 400 MG TAB PO SCH (10:09)
[2022-02-15] MEDS: DOCUSATE SODIUM 100 MG CAP PO SCH (10:09)
[2022-02-15] MEDS: AMLODIPINE BESYLATE 5 MG TAB PO SCH (10:09)
[2022-02-15] MEDS: OYST-CAL-D 500MG TABLET PO SCH (10:09)
[2022-02-15] MEDS: MULTIVITAMINS/MINERALS TAB PO SCH (10:09)
[2022-02-15] MEDS: GABAPENTIN 300 MG CAP PO SCH (10:09)
[2022-02-15] MEDS: COLLAGENASE 5 GM TUBE TP SCH (10:10)
[2022-02-15] MEDS: TRAMADOL HCL 50 MG TAB PO PRN (10:10)
[2022-02-15] MEDS ORDERED: ASCORBIC ACID500 MG PO (11:28)
[2022-02-15] MEDS ORDERED: BACTRIM DS TAB1 EACH PO (11:28)
[2022-02-15] MEDS ORDERED: Multivitamins/Minerals PO (11:28)
[2022-02-15] MEDS ORDERED: ZINC SULFATE50 MG PO (11:28)
[2022-02-15] MEDS ORDERED: Calcium Carbonate PO (11:28)
[2022-02-15] MEDS ORDERED: COLACE100 MG PO (11:28)
[2022-02-15] MEDS ORDERED: Collagenase TP (11:28)
[2022-02-15] MEDS ORDERED: MAGNESIUM OXID400 MG PO (11:28)
[2022-02-15] MEDS ORDERED: ACETAMINOPHEN325 M1 PO (11:28)
[2022-02-15] MEDS ORDERED: CIPRO500 MG PO (11:28)
[2022-02-15 11:36] VITALS: BP 144/75
== END 2022-02-15 14:55 | disposition home or self-care (01) | DRG 872 ==
LOC: ER 14:22 → ERHOLD 17:08 → MED/SURG3 17:39
PROVIDERS: ADMIT Internal Medicine; ATTEND Internal Medicine
PROC: XW03396 Introduction of Ceftolozane/Tazobactam Anti-infective into Peripheral Vein, Percutaneous Approach, New Technology Group 6 (ICD-10-PCS; principal; 2022-02-12)
DX: A41.9 Sepsis, unspecified organism (principal); L97.419 Non-pressure chronic ulcer of right heel and midfoot with unspecified severity; L03.115 Cellulitis of right lower limb; T87.81 Dehiscence of amputation stump; E11.621 Type 2 diabetes mellitus with foot ulcer; Z79.899 Other long term (current) drug therapy; E83.42 Hypomagnesemia; F17.200 Nicotine dependence, unspecified, uncomplicated; E11.51 Type 2 diabetes mellitus with diabetic peripheral angiopathy without gangrene; E78.5 Hyperlipidemia, unspecified; I10 Essential (primary) hypertension; Z89.431 Acquired absence of right foot; H40.9 Unspecified glaucoma; E11.649 Type 2 diabetes mellitus with hypoglycemia without coma; Z89.412 Acquired absence of left great toe; Z89.422 Acquired absence of other left toe(s); Z20.822 Contact with and (suspected) exposure to COVID-19; Z79.4 Long term (current) use of insulin; E11.628 Type 2 diabetes mellitus with other skin complications; R65.20 Severe sepsis without septic shock
CPT/HCPCS: 36415; 71045; 80048; 80053; 80061; 80202; 82550; 82553; 82948; 83036; 83605; 83735; 84100; 84443; 84484; 85025; 85610; 85730; 87040; 93005; 93925; 94799; 99251; 99284; J0360; J1815; J2543; J3370; J3475; J7030; J7040; J7050; U0002

== ENCOUNTER 2022-05-30 09:46 | Inpatient (IN) | payer MEDICARE ==
[~2022-05-30] VITALS: Ht 167.6 cm; Wt 67.1 kg
[~2022-05-30 09:46] MED LIST changes: +ACETAMINOPHEN325 M1 PO; +AMLODIPINE BESYL5 MG PO; +ASCORBIC ACID500 MG PO; +ATORVASTATIN CA40 MG PO; +CIPRO500 MG PO; +COLACE100 MG PO; +Calcium Carbonate PO; +Collagenase TP; +LANTUS 3ML100 UNITS/ SQ; +MAGNESIUM OXID400 MG PO; +Multivitamins/Minerals PO; +PLAVIX75 MG PO; +ZINC SULFATE50 MG PO
[2022-05-30] MEDS ORDERED: CEFEPIME 2 GM in SODIUM CHLORIDE 0.9% 100 ML IV ONE ×2 (11:15→21:30)
[2022-05-30 11:42] LABS: BASOPHILS % 0.3 % (0.0-1.0); EOSINOPHILS # (AUTO) 0.3 (0.0-0.4); EOSINOPHILS % 1.8 % (0.0-6.0); HEMATOCRIT 41.9 % (38.2-49.6); HEMOGLOBIN 13.6 g/dL (14.0-18.0); LYMPHOCYTES # (AUTO) 2.7 (1.0-3.2); LYMPHOCYTES % 18.7 % (18.0-39.1); MEAN CORPUSCULAR HEMOGLOBIN 28.3 pg (28-32); MEAN CORPUSCULAR HGB CONC 32.5 g/dL (31-35); MEAN CORPUSCULAR VOLUME 87.1 fL (81-99); MONOCYTES # (AUTO) 1.1 (0.2-0.8); MONOCYTES % 7.3 % (4.4-11.3); NEUTROPHILS # (AUTO) 10.2 (2.1-6.9); NEUTROPHILS % 71.3 % (38.7-80.0); PLATELET COUNT 395 x10e3/uL (140-360); RED BLOOD COUNT 4.81 x10e6/uL (4.3-5.7)
[2022-05-30] MEDS ORDERED: Vancomycin IV 1 GM in SODIUM CHLORIDE 0.9% 250ML 250 ML IV ONE ×2 (12:00→21:30)
[2022-05-30 12:07] LABS: ALBUMIN 3.6 g/dL (3.5-5.0); ALBUMIN/GLOBULIN RATIO 0.9 (0.8-2.0); ANION GAP 16.9 mmol/L (8-16); CALCIUM 8.9 mg/dL (8.4-10.2); CREATININE, SERUM 0.86 mg/dL (0.72-1.25); POTASSIUM 4.9 mmol/L (3.5-5.1)
[2022-05-30] MEDS ORDERED: ONDANSETRON HCL INJ 2MG/ML 2ML 2 MG/ML VIAL IV PRN (13:00)
[2022-05-30] MEDS ORDERED: Morphine 4mg INJECTION 4 MG/ML INJ IV PRN (13:00)
[2022-05-30 16:40] VITALS: BP 165/74
[2022-05-30] MEDS ORDERED: VASOTEC10 M1 PO (16:52)
[2022-05-30 20:00] VITALS: BP 158/77
[2022-05-30] MEDS ORDERED: DEXTROSE 50% SYRINGE 50 ML IV PRN (21:30)
[2022-05-30] MEDS ORDERED: SODIUM CHLORIDE 0.9% 250ML 250 ML ONE (22:25)
[2022-05-30] MEDS: INSULIN LISPRO 100 UNIT/1 ML 3ML VIAL SQ SCH (22:32)
[2022-05-30 23:47] VITALS: BP 150/68
[2022-05-31] VITALS (8 sets, daily range): BP systolic 125–152; BP diastolic 61–79
[2022-05-31] MEDS: CLINDAMYCIN PHOS 900MG/ 50ML 50 ML IV SCH ×4 (00:40→20:50)
[2022-05-31] MEDS: TRAMADOL HCL 50 MG TAB PO PRN ×2 (05:53→20:56)
[2022-05-31 06:42] LABS: BASOPHILS % 0.3 % (0.0-1.0); EOSINOPHILS # (AUTO) 0.2 (0.0-0.4); EOSINOPHILS % 2.5 % (0.0-6.0); HEMATOCRIT 37.5 % (38.2-49.6); HEMOGLOBIN 12.2 g/dL (14.0-18.0); LYMPHOCYTES % 31.7 % (18.0-39.1); MEAN CORPUSCULAR HEMOGLOBIN 28.6 pg (28-32); MEAN CORPUSCULAR HGB CONC 32.5 g/dL (31-35); MEAN CORPUSCULAR VOLUME 87.8 fL (81-99); MONOCYTES # (AUTO) 1.2 (0.2-0.8); MONOCYTES % 12.3 % (4.4-11.3); NEUTROPHILS # (AUTO) 4.9 (2.1-6.9); NEUTROPHILS % 52.8 % (38.7-80.0); PLATELET COUNT 302 x10e3/uL (140-360); RED BLOOD COUNT 4.27 x10e6/uL (4.3-5.7); RED CELL DISTRIBUTION WIDTH 12.9 % (11.7-14.4)
[2022-05-31 07:05] LABS: ALBUMIN 3.2 g/dL (3.5-5.0); ALBUMIN/GLOBULIN RATIO 1.1 (0.8-2.0); ANION GAP 13.3 mmol/L (8-16); CALCIUM 7.8 mg/dL (8.4-10.2); CREATININE, SERUM 0.77 mg/dL (0.72-1.25); POTASSIUM 4.3 mmol/L (3.5-5.1)
[2022-05-31] MEDS: INSULIN LISPRO 100 UNIT/1 ML 3ML VIAL SQ SCH (08:00)
[2022-05-31] MEDS ORDERED: ASPIRIN 81 MG ENTERIC COATED PO SCH (11:00)
[2022-05-31] MEDS: CLOPIDOGREL BISULFATE 75 MG TAB PO SCH (12:00)
[2022-05-31] MEDS: Vancomycin IV 1 GM in SODIUM CHLORIDE 0.9% 250ML 250 ML IV SCH ×2 (12:00→20:49)
[2022-05-31] MEDS ORDERED: ENALAPRIL MALEATE 10 MG TAB PO PRN (14:30)
[2022-05-31] MEDS ORDERED: GADOBENATE DIMEGLUMINE 1 ML IV ONE (15:08)
[2022-05-31] MEDS: ATORVASTATIN 40 MG TAB PO SCH (20:50)
[2022-05-31] MEDS: LATANOPROST(OPTH) 2.5 ML BTL OU SCH (20:52)
[2022-05-31] MEDS: SODIUM CHLORIDE 0.9% 1000ML 1,000 ML IV SCH (23:11)
[2022-06-01] VITALS (30 sets, daily range): BP systolic 138–195; BP diastolic 64–93
[2022-06-01] MEDS ORDERED: SODIUM CHLORIDE 0.9% 1000ML 1,000 ML IV SCH ×2 (05:00→12:45)
[2022-06-01] MEDS: CLINDAMYCIN PHOS 900MG/ 50ML 50 ML IV SCH ×3 (05:55→21:56)
[2022-06-01] MEDS: TRAMADOL HCL 50 MG TAB PO PRN ×2 (05:59→17:22)
[2022-06-01 06:43] LABS: BASOPHILS % 0.6 % (0.0-1.0); EOSINOPHILS # (AUTO) 0.3 (0.0-0.4); EOSINOPHILS % 3.5 % (0.0-6.0); HEMATOCRIT 37.1 % (38.2-49.6); HEMOGLOBIN 12.3 g/dL (14.0-18.0); LYMPHOCYTES % 27.6 % (18.0-39.1); MEAN CORPUSCULAR HEMOGLOBIN 28.6 pg (28-32); MEAN CORPUSCULAR HGB CONC 33.2 g/dL (31-35); MEAN CORPUSCULAR VOLUME 86.3 fL (81-99); MONOCYTES % 14.3 % (4.4-11.3); NEUTROPHILS # (AUTO) 3.9 (2.1-6.9); NEUTROPHILS % 53.6 % (38.7-80.0); PLATELET COUNT 315 x10e3/uL (140-360); RED CELL DISTRIBUTION WIDTH 12.8 % (11.7-14.4)
[2022-06-01 06:53] LABS: INR 0.89; PROTHROMBIN TIME 12.9 seconds (11.9-14.5)
[2022-06-01 07:10] LABS: ALBUMIN 3.3 g/dL (3.5-5.0); ALBUMIN/GLOBULIN RATIO 1.1 (0.8-2.0); ANION GAP 12.2 mmol/L (8-16); CALCIUM 8.4 mg/dL (8.4-10.2); CREATININE, SERUM 0.9 mg/dL (0.72-1.25); POTASSIUM 4.2 mmol/L (3.5-5.1)
[2022-06-01] MEDS: AMLODIPINE BESYLATE 5 MG TAB PO SCH (09:00)
[2022-06-01] MEDS: CLOPIDOGREL BISULFATE 75 MG TAB PO SCH (09:00)
[2022-06-01] MEDS: TIMOLOL MALEATE 0.5% OPTH DRP 5 ML BTL OU SCH (09:00)
[2022-06-01] MEDS: FENOFIBRATE 145 MG TAB PO SCH (09:00)
[2022-06-01] MEDS: Vancomycin IV 1 GM in SODIUM CHLORIDE 0.9% 250ML 250 ML IV SCH (09:48)
[2022-06-01] MEDS ORDERED: MIDAZOLAM HCL 2 MG/2 ML VIAL ONE ×2 (10:39→11:31)
[2022-06-01] MEDS ORDERED: HEPARIN SOD (PORCINE) 1000 UNIT/ML 30ML ONE (10:39)
[2022-06-01] MEDS ORDERED: FENTANYL CITRATE/PF 100MCG/2 ML INJ ONE (10:39)
[2022-06-01] MEDS ORDERED: LIDOCAINE HCL 1% LOCAL INJ 20 ML VIAL ONE (10:40)
[2022-06-01] MEDS ORDERED: IOPAMIDOL 300MG/ML 100 ML INFUS..BTL IV ONE ×2 (10:40→12:03)
[2022-06-01] MEDS ORDERED: SODIUM CHLORIDE 0.9% 1000ML 1,000 ML ONE (10:40)
[2022-06-01] MEDS ORDERED: HEPARIN SOD/SOD CHLORIDE 2,000 ML ONE (10:54)
[2022-06-01] MEDS: INSULIN LISPRO 100 UNIT/1 ML 3ML VIAL SQ SCH ×3 (11:30→21:13)
[2022-06-01] MEDS: SODIUM CHLORIDE 0.9% 1000ML 1,000 ML IV SCH (12:35)
[2022-06-01] MEDS ORDERED: ONDANSETRON HCL INJ 2MG/ML 2ML 2 MG/ML VIAL IV PRN (12:45)
[2022-06-01] MEDS: ATORVASTATIN 40 MG TAB PO SCH (21:07)
[2022-06-01] MEDS: LATANOPROST(OPTH) 2.5 ML BTL OU SCH (21:13)
[2022-06-02] MEDS: SODIUM CHLORIDE 0.9% 1000ML 1,000 ML IV SCH ×2 (01:13→15:15)
[2022-06-02] MEDS: TRAMADOL HCL 50 MG TAB PO PRN ×4 (03:55→22:37)
[2022-06-02 04:10] VITALS: BP 132/70
[2022-06-02] MEDS: CLINDAMYCIN PHOS 900MG/ 50ML 50 ML IV SCH (05:26)
[2022-06-02 06:11] LABS: BASOPHILS % 0.4 % (0.0-1.0); EOSINOPHILS # (AUTO) 0.2 (0.0-0.4); EOSINOPHILS % 2.3 % (0.0-6.0); HEMATOCRIT 35.1 % (38.2-49.6); HEMOGLOBIN 11.9 g/dL (14.0-18.0); LYMPHOCYTES # (AUTO) 2.5 (1.0-3.2); LYMPHOCYTES % 24.8 % (18.0-39.1); MEAN CORPUSCULAR HEMOGLOBIN 28.8 pg (28-32); MEAN CORPUSCULAR HGB CONC 33.9 g/dL (31-35); MONOCYTES # (AUTO) 1.1 (0.2-0.8); MONOCYTES % 10.6 % (4.4-11.3); NEUTROPHILS # (AUTO) 6.2 (2.1-6.9); NEUTROPHILS % 61.6 % (38.7-80.0); PLATELET COUNT 296 x10e3/uL (140-360); RED BLOOD COUNT 4.13 x10e6/uL (4.3-5.7); RED CELL DISTRIBUTION WIDTH 12.9 % (11.7-14.4)
[2022-06-02 06:33] LABS: ALBUMIN 3.2 g/dL (3.5-5.0); ALBUMIN/GLOBULIN RATIO 1.2 (0.8-2.0); ANION GAP 13.2 mmol/L (8-16); CALCIUM 8.2 mg/dL (8.4-10.2); CREATININE, SERUM 0.81 mg/dL (0.72-1.25); POTASSIUM 4.2 mmol/L (3.5-5.1)
[2022-06-02] MEDS ORDERED: DEXAMETHASONE SOD PHOS INJ 4 MG/ML SDV ONE (07:20)
[2022-06-02] MEDS ORDERED: BUPIVACAINE 0.25% 30ML SDV ONE (07:20)
[2022-06-02] MEDS ORDERED: POVIDONE IODINE 0.05% 0.05 % ML PO ONE (08:21)
[2022-06-02] MEDS ORDERED: ONDANSETRON HCL INJ 2MG/ML 2ML 2 MG/ML VIAL ONE (08:21)
[2022-06-02] MEDS ORDERED: SEVOFLURANE INHAL SOLN 250 ML PEN BTL ONE (08:21)
[2022-06-02] MEDS ORDERED: PROPOFOL IV EMULSION 10 MG/ML 20 ML VIAL ONE (08:21)
[2022-06-02] MEDS ORDERED: LIDOCAINE HCL 2% LOCAL INJ 5 ML SDV VIAL INJ ONE (08:21)
[2022-06-02] MEDS: AMLODIPINE BESYLATE 5 MG TAB PO SCH (08:38)
[2022-06-02] MEDS: CLOPIDOGREL BISULFATE 75 MG TAB PO SCH (08:39)
[2022-06-02] MEDS: ASPIRIN 325 MG TAB PO SCH (08:39)
[2022-06-02] MEDS: FENOFIBRATE 145 MG TAB PO SCH (08:39)
[2022-06-02] MEDS: INSULIN LISPRO 100 UNIT/1 ML 3ML VIAL SQ SCH ×4 (08:42→21:29)
[2022-06-02] MEDS: TIMOLOL MALEATE 0.5% OPTH DRP 5 ML BTL OU SCH (08:42)
[2022-06-02] MEDS ORDERED: CLOPIDOGREL BISULFATE 75 MG TAB PO SCH (09:00)
[2022-06-02] MEDS ORDERED: FENTANYL CITRATE/PF 100MCG/2 ML INJ ONE (09:28)
[2022-06-02] MEDS ORDERED: MIDAZOLAM HCL 2 MG/2 ML VIAL ONE (09:28)
[2022-06-02] MEDS: Vancomycin IV 1 GM in SODIUM CHLORIDE 0.9% 250ML 250 ML IV SCH (10:54)
[2022-06-02 12:35] VITALS: BP 158/66
[2022-06-02 16:00] VITALS: BP 163/71
[2022-06-02] MEDS: Morphine 2mg Syringe 2 MG/ML SYR IV PRN ×2 (18:24→21:20)
[2022-06-02 20:00] VITALS: BP 164/71
[2022-06-02 20:53] VITALS: BP 164/71
[2022-06-02] MEDS: ATORVASTATIN 40 MG TAB PO SCH (21:20)
[2022-06-02] MEDS: LATANOPROST(OPTH) 2.5 ML BTL OU SCH (21:29)
[2022-06-03] VITALS (8 sets, daily range): BP systolic 150–171; BP diastolic 63–78
[2022-06-03] MEDS: Morphine 2mg Syringe 2 MG/ML SYR IV PRN ×5 (01:30→20:54)
[2022-06-03] MEDS: HYDROCODONE/APAP 5MG-325MG TAB PO PRN (02:27)
[2022-06-03] MEDS: SODIUM CHLORIDE 0.9% 1000ML 1,000 ML IV SCH (04:35)
[2022-06-03] MEDS: INSULIN LISPRO 100 UNIT/1 ML 3ML VIAL SQ SCH ×4 (08:00→21:16)
[2022-06-03] MEDS: TRAMADOL HCL 50 MG TAB PO PRN (08:45)
[2022-06-03] MEDS: ASPIRIN 325 MG TAB PO SCH (08:58)
[2022-06-03] MEDS: AMLODIPINE BESYLATE 5 MG TAB PO SCH (08:58)
[2022-06-03] MEDS: CLOPIDOGREL BISULFATE 75 MG TAB PO SCH (08:58)
[2022-06-03] MEDS: FENOFIBRATE 145 MG TAB PO SCH (08:58)
[2022-06-03] MEDS: TIMOLOL MALEATE 0.5% OPTH DRP 5 ML BTL OU SCH (09:43)
[2022-06-03] MEDS: Vancomycin IV 1 GM in SODIUM CHLORIDE 0.9% 250ML 250 ML IV SCH (09:44)
[2022-06-03] MEDS: COLLAGENASE 5 GM TUBE TP SCH (09:45)
[2022-06-03] MEDS ORDERED: RIVAROXABAN 10 MG TABLET PO SCH (17:00)
[2022-06-03] MEDS: LATANOPROST(OPTH) 2.5 ML BTL OU SCH (20:54)
[2022-06-03] MEDS: ATORVASTATIN 40 MG TAB PO SCH (20:54)
[2022-06-03] MEDS: ACETAMINOPHEN 325 MG TAB PO PRN (23:56)
[2022-06-04] VITALS (8 sets, daily range): BP systolic 132–156; BP diastolic 64–74
[2022-06-04] MEDS: Morphine 2mg Syringe 2 MG/ML SYR IV PRN ×7 (00:05→21:16)
[2022-06-04] MEDS: HYDROCODONE/APAP 5MG-325MG TAB PO PRN (01:30)
[2022-06-04] MEDS: INSULIN LISPRO 100 UNIT/1 ML 3ML VIAL SQ SCH ×4 (07:40→21:15)
[2022-06-04] MEDS: TRAMADOL HCL 50 MG TAB PO PRN (08:15)
[2022-06-04] MEDS: AMLODIPINE BESYLATE 5 MG TAB PO SCH (08:29)
[2022-06-04] MEDS: FENOFIBRATE 145 MG TAB PO SCH (08:29)
[2022-06-04] MEDS: TIMOLOL MALEATE 0.5% OPTH DRP 5 ML BTL OU SCH (08:29)
[2022-06-04] MEDS: CLOPIDOGREL BISULFATE 75 MG TAB PO SCH (08:29)
[2022-06-04] MEDS: ASPIRIN 325 MG TAB PO SCH (08:29)
[2022-06-04] MEDS: COLLAGENASE 5 GM TUBE TP SCH (08:30)
[2022-06-04] MEDS: RIVAROXABAN 10 MG TABLET PO SCH (08:30)
[2022-06-04] MEDS: Vancomycin IV 1 GM in SODIUM CHLORIDE 0.9% 250ML 250 ML IV SCH (09:50)
[2022-06-04] MEDS: GABAPENTIN 100 MG CAP PO SCH (17:30)
[2022-06-04] MEDS: LATANOPROST(OPTH) 2.5 ML BTL OU SCH (21:15)
[2022-06-04] MEDS: ATORVASTATIN 40 MG TAB PO SCH (21:15)
[2022-06-05] VITALS: BP 138/67
[2022-06-05] MEDS: TRAMADOL HCL 50 MG TAB PO PRN (02:10)
[2022-06-05 04:00] VITALS: BP 156/67
[2022-06-05] MEDS: Morphine 2mg Syringe 2 MG/ML SYR IV PRN ×4 (06:43→17:24)
[2022-06-05 07:50] VITALS: BP 158/74
[2022-06-05] MEDS: INSULIN LISPRO 100 UNIT/1 ML 3ML VIAL SQ SCH ×4 (08:00→20:30)
[2022-06-05 08:50] VITALS: BP 158/74
[2022-06-05] MEDS: Vancomycin IV 1 GM in SODIUM CHLORIDE 0.9% 250ML 250 ML IV SCH (09:18)
[2022-06-05] MEDS: CLOPIDOGREL BISULFATE 75 MG TAB PO SCH (09:19)
[2022-06-05] MEDS: FENOFIBRATE 145 MG TAB PO SCH (09:19)
[2022-06-05] MEDS: TIMOLOL MALEATE 0.5% OPTH DRP 5 ML BTL OU SCH (09:19)
[2022-06-05] MEDS: AMLODIPINE BESYLATE 5 MG TAB PO SCH (09:20)
[2022-06-05] MEDS: GABAPENTIN 100 MG CAP PO SCH ×3 (09:20→20:25)
[2022-06-05] MEDS: RIVAROXABAN 10 MG TABLET PO SCH (09:20)
[2022-06-05] MEDS: ASPIRIN 81 MG ENTERIC COATED PO SCH (09:35)
[2022-06-05] MEDS: COLLAGENASE 5 GM TUBE TP SCH (09:36)
[2022-06-05] MEDS: METOPROLOL TARTRATE 25 MG TAB PO SCH ×2 (09:36→17:09)
[2022-06-05 11:37] VITALS: BP 138/71
[2022-06-05] MEDS ORDERED: CYMBALTA30 MG PO (13:49)
[2022-06-05] MEDS ORDERED: GABAPENTIN100 MG PO (13:49)
[2022-06-05] MEDS ORDERED: CIPRO500 MG PO (13:49)
[2022-06-05] MEDS ORDERED: METOPROLOL SUCC50 MG PO (13:49)
[2022-06-05] MEDS ORDERED: DOXYCYCLINE HY100 MG PO (13:52)
[2022-06-05 15:53] VITALS: BP 161/82
[2022-06-05] MEDS: DULOXETINE HCL 30 MG DELAYED RELEASE PO SCH (17:08)
[2022-06-05] MEDS: LATANOPROST(OPTH) 2.5 ML BTL OU SCH (20:24)
[2022-06-05] MEDS: ATORVASTATIN 40 MG TAB PO SCH (20:24)
[2022-06-05] MEDS: HYDROCODONE/APAP 5MG-325MG TAB PO PRN (20:25)
[2022-06-05] MEDS: INSULIN GLARGINE 100 UNITS/ML VIAL SQ SCH (20:30)
[2022-06-06] VITALS (7 sets, daily range): BP systolic 134–160; BP diastolic 66–74
[2022-06-06] MEDS: TRAMADOL HCL 50 MG TAB PO PRN ×4 (00:40→21:31)
[2022-06-06] MEDS: HYDROCODONE/APAP 5MG-325MG TAB PO PRN ×3 (03:51→17:01)
[2022-06-06] MEDS: DULOXETINE HCL 30 MG DELAYED RELEASE PO SCH (08:24)
[2022-06-06] MEDS: INSULIN LISPRO 100 UNIT/1 ML 3ML VIAL SQ SCH ×4 (08:24→21:36)
[2022-06-06] MEDS: ASPIRIN 81 MG ENTERIC COATED PO SCH (08:24)
[2022-06-06] MEDS: FENOFIBRATE 145 MG TAB PO SCH (08:25)
[2022-06-06] MEDS: GABAPENTIN 100 MG CAP PO SCH ×3 (08:25→21:29)
[2022-06-06] MEDS: METOPROLOL TARTRATE 25 MG TAB PO SCH ×2 (08:25→16:50)
[2022-06-06] MEDS: RIVAROXABAN 10 MG TABLET PO SCH (08:25)
[2022-06-06] MEDS: AMLODIPINE BESYLATE 5 MG TAB PO SCH (08:25)
[2022-06-06] MEDS: CLOPIDOGREL BISULFATE 75 MG TAB PO SCH (08:25)
[2022-06-06] MEDS: COLLAGENASE 5 GM TUBE TP SCH (08:25)
[2022-06-06] MEDS: TIMOLOL MALEATE 0.5% OPTH DRP 5 ML BTL OU SCH (09:06)
[2022-06-06] MEDS: Vancomycin IV 1 GM in SODIUM CHLORIDE 0.9% 250ML 250 ML IV SCH (10:00)
[2022-06-06] MEDS: DOXYCYCLINE HYCLATE TABLET 100 MG TAB PO SCH ×2 (15:17→21:29)
[2022-06-06] MEDS: LATANOPROST(OPTH) 2.5 ML BTL OU SCH (21:29)
[2022-06-06] MEDS: ATORVASTATIN 40 MG TAB PO SCH (21:29)
[2022-06-06] MEDS: INSULIN GLARGINE 100 UNITS/ML VIAL SQ SCH (21:36)
[2022-06-07] VITALS (8 sets, daily range): BP systolic 132–145; BP diastolic 63–71
[2022-06-07] MEDS: HYDROCODONE/APAP 5MG-325MG TAB PO PRN ×5 (00:45→19:25)
[2022-06-07] MEDS: FENOFIBRATE 145 MG TAB PO SCH (09:08)
[2022-06-07] MEDS: GABAPENTIN 100 MG CAP PO SCH ×3 (09:09→21:24)
[2022-06-07] MEDS: ASPIRIN 81 MG ENTERIC COATED PO SCH (09:09)
[2022-06-07] MEDS: METOPROLOL TARTRATE 25 MG TAB PO SCH ×2 (09:09→15:51)
[2022-06-07] MEDS: AMLODIPINE BESYLATE 5 MG TAB PO SCH (09:09)
[2022-06-07] MEDS: DOXYCYCLINE HYCLATE TABLET 100 MG TAB PO SCH ×2 (09:10→21:24)
[2022-06-07] MEDS: TIMOLOL MALEATE 0.5% OPTH DRP 5 ML BTL OU SCH (09:10)
[2022-06-07] MEDS: RIVAROXABAN 10 MG TABLET PO SCH (09:10)
[2022-06-07] MEDS: CLOPIDOGREL BISULFATE 75 MG TAB PO SCH (09:10)
[2022-06-07] MEDS: DULOXETINE HCL 30 MG DELAYED RELEASE PO SCH (09:10)
[2022-06-07] MEDS: COLLAGENASE 5 GM TUBE TP SCH (09:11)
[2022-06-07] MEDS: INSULIN LISPRO 100 UNIT/1 ML 3ML VIAL SQ SCH ×4 (09:45→21:00)
[2022-06-07] MEDS: INSULIN GLARGINE 100 UNITS/ML VIAL SQ SCH (21:00)
[2022-06-07] MEDS: ATORVASTATIN 40 MG TAB PO SCH (21:24)
[2022-06-07] MEDS: LATANOPROST(OPTH) 2.5 ML BTL OU SCH (21:24)
[2022-06-07] MEDS: ONDANSETRON HCL 4 MG ORAL DISINTEGRATING TAB PO PRN ×2 (23:08→23:35)
[2022-06-07] MEDS: Morphine 2mg Syringe 2 MG/ML SYR IV PRN (23:35)
[2022-06-08] MEDS: HYDROCODONE/APAP 5MG-325MG TAB PO PRN ×2 (06:21→09:25)
[2022-06-08] MEDS: ONDANSETRON HCL 4 MG ORAL DISINTEGRATING TAB PO PRN (06:21)
[2022-06-08] MEDS: AMLODIPINE BESYLATE 5 MG TAB PO SCH (08:16)
[2022-06-08] MEDS: DOXYCYCLINE HYCLATE TABLET 100 MG TAB PO SCH (08:16)
[2022-06-08] MEDS: RIVAROXABAN 10 MG TABLET PO SCH (08:17)
[2022-06-08] MEDS: DULOXETINE HCL 30 MG DELAYED RELEASE PO SCH (08:18)
[2022-06-08] MEDS: FENOFIBRATE 145 MG TAB PO SCH (08:18)
[2022-06-08] MEDS: ASPIRIN 81 MG ENTERIC COATED PO SCH (08:18)
[2022-06-08] MEDS: CLOPIDOGREL BISULFATE 75 MG TAB PO SCH (08:18)
[2022-06-08] MEDS: GABAPENTIN 100 MG CAP PO SCH ×2 (08:19→13:51)
[2022-06-08] MEDS: COLLAGENASE 5 GM TUBE TP SCH (08:19)
[2022-06-08] MEDS: METOPROLOL TARTRATE 25 MG TAB PO SCH (08:19)
[2022-06-08 08:26] VITALS: BP 134/63
[2022-06-08] MEDS: TIMOLOL MALEATE 0.5% OPTH DRP 5 ML BTL OU SCH (08:28)
[2022-06-08 09:03] VITALS: BP 133/71
[2022-06-08] MEDS: INSULIN LISPRO 100 UNIT/1 ML 3ML VIAL SQ SCH ×2 (09:15→11:46)
[2022-06-08 12:06] VITALS: BP 139/65
[2022-06-08] MEDS: ACETAMINOPHEN 325 MG TAB PO PRN (13:51)
== END 2022-06-08 14:20 | disposition home or self-care (01) | DRG 240 ==
LOC: ER 11:10 → ERHOLD 13:03 → MED/SURG3 16:30
PROVIDERS: ADMIT Internal Medicine; ATTEND Internal Medicine
PROC: B41D1ZZ Fluoroscopy of Aorta and Bilateral Lower Extremity Arteries using Low Osmolar Contrast (ICD-10-PCS; principal; 2022-06-01)
PROC: 047D341 Dilation of Left Common Iliac Artery with Drug-eluting Intraluminal Device, using Drug-Coated Balloon, Percutaneous Approach (ICD-10-PCS; 2022-06-01)
PROC: 047L3Z1 Dilation of Left Femoral Artery using Drug-Coated Balloon, Percutaneous Approach (ICD-10-PCS; 2022-06-01)
PROC: 047N3Z1 Dilation of Left Popliteal Artery using Drug-Coated Balloon, Percutaneous Approach (ICD-10-PCS; 2022-06-01)
PROC: 047H3Z1 Dilation of Right External Iliac Artery using Drug-Coated Balloon, Percutaneous Approach (ICD-10-PCS; 2022-06-01)
PROC: 0Y6N0Z0 Detachment at Left Foot, Complete, Open Approach (ICD-10-PCS; 2022-06-02)
DX: E11.52 Type 2 diabetes mellitus with diabetic peripheral angiopathy with gangrene (principal); I70.263 Atherosclerosis of native arteries of extremities with gangrene, bilateral legs; I70.92 Chronic total occlusion of artery of the extremities; T82.858A Stenosis of other vascular prosthetic devices, implants and grafts, initial encounter; L97.419 Non-pressure chronic ulcer of right heel and midfoot with unspecified severity; M86.172 Other acute osteomyelitis, left ankle and foot; E11.621 Type 2 diabetes mellitus with foot ulcer; E11.42 Type 2 diabetes mellitus with diabetic polyneuropathy; E11.69 Type 2 diabetes mellitus with other specified complication; L97.529 Non-pressure chronic ulcer of other part of left foot with unspecified severity; L97.519 Non-pressure chronic ulcer of other part of right foot with unspecified severity; I10 Essential (primary) hypertension; E78.5 Hyperlipidemia, unspecified; E78.00 Pure hypercholesterolemia, unspecified; Z89.431 Acquired absence of right foot; Z89.412 Acquired absence of left great toe; Z89.422 Acquired absence of other left toe(s); Z95.820 Peripheral vascular angioplasty status with implants and grafts; Z83.3 Family history of diabetes mellitus; Z20.822 Contact with and (suspected) exposure to COVID-19; Z79.4 Long term (current) use of insulin; Z79.84 Long term (current) use of oral hypoglycemic drugs
CPT/HCPCS: 0223U; 36247; 36415; 37220; 37221; 37224; 75625; 75716; 76937; 80053; 80061; 80202; 82948; 85025; 85610; 87040; 88304; 88307; 88311; 93925; 97139; 99152; 99153; 99251; 99284; C1766; C1769; C1874; C1887; C1894; C2623; J0692; J1100; J1644; J1815; J2001; J2250; J2270; J2405; J3010; J3370; J7030; J7050; Q0162; Q9967